=== PATIENT | male | born 1975 | race American Indian/Alaskan Native ===

== ENCOUNTER 2017-07-14 20:21 | Inpatient (IN) | payer MEDICARE ==
[2017-07-14 22:04] LABS: Basophils % (Auto) 0.2 % (0.0-1.8); Eosinophils % (Auto) 1.3 % (0.0-4.3); Hematocrit 44.1 % (35.5-45.6); Hemoglobin 14.3 gm/dl (11.8-15.2); Mean Corpuscular HGB Conc 33 % (32-34); Mean Corpuscular Hemoglobin 27 pg (28-32); Mean Corpuscular Volume 83 fl (84-94); Platelet Count 183 K/mm3 (140-440); Red Blood Count 5.35 M/mm3 (3.65-5.03); Red Cell Distribution Width 14.2 % (13.2-15.2); White Blood Count 9.2 K/mm3 (4.5-11.0)
[2017-07-14 22:19] LABS: Alanine Aminotransferase 13 units/L (7-56); Albumin 4.2 g/dL (3.9-5); Alkaline Phosphatase 127 units/L (35-129); Anion Gap 18 mmol/L; BUN/Creatinine Ratio 11.42; Blood Urea Nitrogen 16 mg/dL (9-20); Calcium 9.5 mg/dL (8.4-10.2); Carbon Dioxide 26 mmol/L (22-30); Chloride 91.1 mmol/L (98-107); Glucose 458 mg/dL (75-100); Lipase 256 units/L (13-60); Potassium 4.8 mmol/L (3.6-5.0); Sodium 130 mmol/L (137-145); Total Protein 8.5 g/dL (6.3-8.2)
[2017-07-15 03:52] LABS: Bacteria,Urine 1+ /HPF (Negative); Bilirubin,Urine NEG (Negative); Blood,Urine NEG (Negative); Ketones,Urine NEG (Negative); Leukocyte Esterase,Urine NEG (Negative); Mucus,Urine FEW /HPF; Nitrite,Urine NEG (Negative); RBC,Urine < 1.0 /HPF (0.0-6.0); Urobilinogen,Urine < 2.0 mg/dL (<2.0)
[2017-07-15] MEDS ORDERED: MORPHINE IV ONE (04:02)
[2017-07-15] MEDS ORDERED: TORADOL IV ONE (04:02)
[2017-07-15] MEDS ORDERED: NACL 0.9% 500 ML 500 ML IV ONE (04:04)
--- NOTE | 2017-07-15 04:10 | Emergency Department Report ---
ED Abdominal Pain HPI - General Chief Complaint: Abdominal Pain Stated Complaint: ABDOMINAL PAIN Time Seen by Provider: 07/15/17 03:36 Source: patient Mode of arrival: Ambulatory Limitations: No Limitations - History of Present Illness Initial Comments: A 41-year-old male with past medical history of diabetes, congestive heart failure, hypertension, acute and chronic renal insufficiency. Presents to ER with complaints of epigastric pain. Pain started about 3 days ago, it is progressively getting worse. Pain has a sharp burning character, pain radiates to his back. -: Gradual (for 3 days days, progressively getting worse) Location: epigastric Radiation: back Migration to: no migration Severity: moderate Severity scale (0 -10): 6 Quality: cramping, stabbing, aching, sharp, burning Consistency: intermittent Improves With: nothing Worsens With: nothing Associated Symptoms: nausea, vomiting, chills. denies: diarrhea, fever, constipation, dysuria, hematemesis, hematochezia, hematuria, anorexia, syncope, other - Related Data Home Medications Medication Instructions Recorded Confirmed Last Taken Furosemide [Lasix TAB] 40 mg PO BID 11/16/15 11/16/15 11/16/15 Losartan [Cozaar] 100 mg PO QDAY 11/16/15 11/16/15 11/16/15 Potassium Chloride [Klor-Con M10] 20 meq PO QDAY 11/16/15 11/16/15 11/16/15 Previous Rx's Medication Instructions Recorded Last Taken Type Aspirin [Aspirin BABY CHEW TAB] 81 mg PO QDAY #30 tab.chew 04/27/15 11/16/15 Rx Insulin NPH/Regular [NovoLIN 70/30] 25 unit SQ QAM #30 units 04/27/15 11/16/15 Rx Insulin NPH/Regular [NovoLIN 70/30] 30 units SQ HS #30 units 04/27/15 11/16/15 Rx Isosorb Dinit/Hydralazine HCl 1 each PO TID #60 tablet 04/27/15 11/16/15 Rx [Bidil Tablet] Carvedilol [Coreg] 12.5 mg PO BID #120 tablet 11/19/15 Unknown Rx Allergies Allergy/AdvReac Type Severity Reaction Status Date / Time No Known Allergies Allergy Verified 12/14/14 17:52 ED Review of Systems ROS: Stated complaint: ABDOMINAL PAIN Other details as noted in HPI Comment: All other systems reviewed and negative Constitutional: malaise, weakness. denies: chills, diaphoresis Eyes: denies: eye discharge, vision change ENT: denies: throat pain, dental pain, hearing loss Respiratory: denies: cough, shortness of breath, SOB with exertion Cardiovascular: denies: chest pain, palpitations, edema, syncope, paroxysmal nocturnal dyspnea Endocrine: no symptoms reported Gastrointestinal: abdominal pain (epigastric pain), nausea, vomiting, diarrhea. denies: constipation, hematemesis, melena Genitourinary: denies: dysuria, frequency, hematuria, discharge Musculoskeletal: denies: back pain, joint swelling, arthralgia Skin: denies: rash, lesions, change in color, change in hair/nails ED Past Medical Hx - Past Medical History Hx Hypertension: Yes Hx Heart Attack/AMI: No Hx Congestive Heart Failure: Yes Hx Diabetes: Yes (IDDM) Hx Asthma: No Hx COPD: No - Surgical History Hx Pacemaker: Yes Hx Internal Defibrillator: Yes Additional Surgical History: pacemaker / left leg - Social History Smoking Status: Current Some Day Smoker - Medications Home Medications: Home Medications Medication Instructions Recorded Confirmed Last Taken Type Aspirin [Aspirin BABY CHEW TAB] 81 mg PO QDAY #30 tab.chew 04/27/15 11/16/1511/30 Rx Insulin NPH/Regular [NovoLIN 70/30] 25 unit SQ QAM #30 units 04/27/15 11/16/15 11/16/15 Rx Insulin NPH/Regular [NovoLIN 70/30] 30 units SQ HS #30 units 04/27/15 11/16/15 11/16/15 Rx Isosorb Dinit/Hydralazine HCl 1 each PO TID #60 tablet 04/27/15 11/16/15 Rx [Bidil Tablet] Furosemide [Lasix TAB] 40 mg PO BID 11/16/15 11/16/15 11/16/15 History Losartan [Cozaar] 100 mg PO QDAY 11/16/15 11/16/15 11/16/15 History Potassium Chloride [Klor-Con M10] 20 meq PO QDAY 11/16/15 11/16/15 11/16/15 History Carvedilol [Coreg] 12.5 mg PO BID #120 tablet 11/19/15 Unknown Rx ED Physical Exam - General Limitations: No Limitations General appearance: in distress (moderate distress), obese - Head Head exam: Present: atraumatic, normocephalic, normal inspection - Eye Eye exam: Present: normal appearance, PERRL, EOMI. Absent: scleral icterus, conjunctival injection, nystagmus, periorbital swelling, periorbital tenderness Pupils: Present: normal accommodation - ENT ENT exam: Present: normal exam, normal orophraynx, mucous membranes moist - Neck Neck exam: Present: normal inspection, full ROM. Absent: tenderness, meningismus, lymphadenopathy, thyromegaly - Respiratory Respiratory exam: Present: normal lung sounds bilaterally, respiratory distress. Absent: rales, rhonchi, chest wall tenderness, accessory muscle use, decreased breath sounds - Cardiovascular Cardiovascular Exam: Present: regular rate, normal rhythm, normal heart sounds - GI/Abdominal GI/Abdominal exam: Present: soft, tenderness (epigastric region), guarding ( epigastric region), diminished bowel sounds - Rectal Rectal exam: Present: deferred - Extremities Exam Extremities exam: Present: normal inspection, full ROM, normal capillary refill , pedal edema - Back Exam Back exam: Present: normal inspection, full ROM. Absent: CVA tenderness (L), muscle spasm - Neurological Exam Neurological exam: Present: alert, oriented X3, CN II-XII intact ED Course Vital Signs 07/14/17 07/15/17 07/15/17 21:30 02:11 02:40 Temperature 99.0 F 98 F 98 F Pulse Rate 65 60 60 Respiratory 20 20 Rate Blood Pressure 237/122 Blood Pressure 189/104 169/92 [Left] O2 Sat by Pulse 99 97 97 Oximetry 07/15/17 05:23 Temperature Pulse Rate 60 Respiratory Rate Blood Pressure 162/90 Blood Pressure [Left] O2 Sat by Pulse Oximetry - Consultations Consultation #1: 07/15/17 06:29 Discussed with hospitalist service. Admission to [facility] ED Medical Decision Making - Lab Data Result diagrams: 07/14/17 21:41 07/14/17 21:41 - Radiology Data Radiology results: report reviewed Critical Care Time: No Critical care attestation.: If time is entered above; I have spent that time in minutes in the direct care of this critically ill patient, excluding procedure time. ED Disposition Clinical Impression: Acute pancreatitis, Uncontrolled hypertension Disposition: DC- OP ADMIT IP TO THIS HOSP Is pt being admited?: Yes Does the pt Need Aspirin: No Condition: Stable Instructions: Hypertension (ED) Referrals: LUKE HILL MD [Primary Care Provider] - 3-5 Days Time of Disposition: 06:31
[2017-07-15] MEDS ORDERED: NORMODYNE IV ONE (04:56)
[2017-07-15] MEDS ORDERED: NACL ONE (04:58)
[2017-07-15] MEDS ORDERED: ZOFRAN IV NR (05:00)
[2017-07-15 05:09] LABS: Creatine Kinase MB 1.9 ng/mL (0.0-4.0)
[2017-07-15 05:10] LABS: Creatine Kinase 100 units/L (55-170)
--- NOTE | 2017-07-15 05:50 | Cat Scan Report ---
FINAL REPORT EXAM: CT ABDOMEN PELVIS W CON HISTORY: Acute Pancreatitis TECHNIQUE: CT images are acquired through the Abdomen and Pelvis in arterial and delayed phases following intravenous administration of contrast. Transaxial, coronal and sagittal reformations are provided. PRIORS: Chest radiograph 11/16/2015, 11/04/2015 FINDINGS: Partially visualized intrathoracic contents are remarkable for cardiomegaly with possible pericardial effusion. Partially imaged pacemaker leads. There is peripancreatic edema involving the head and uncinate. No focal area of pancreatic parenchymal hypo enhancement or walled-off necrosis. No peripancreatic fluid or organizing collection. A few prominent peripancreatic lymph nodes are present. No pancreatic ductal dilatation. Splenic vasculature is normal in caliber and well opacified. The liver, gallbladder, spleen, and adrenal glands are unremarkable. Kidneys show no worrisome lesions, hydronephrosis, or calculi. A couple of right renal cysts measure 2.8 and 1.2 cm, respectively. Additional subcentimeter hypoenhancing cortical foci in the right kidney are too small to characterize but are also likely benign cysts. Urinary bladder is unremarkable. Small and large bowel are normal in caliber. Appendix is normal. No free air, free fluid, or lymphadenopathy identified. Aorta is normal in course and caliber. Superficial soft tissues are unremarkable. No acute or aggressive appearing skeletal findings. Right hip osteoarthrosis with subchondral cyst formation. Left femoral defect from prior intramedullary nail. IMPRESSION: Mild peripancreatic edema involving the head and uncinate process without any evident complication of acute pancreatitis. Cardiomegaly with possible pericardial effusion. Enlarged cardiac silhouette is demonstrated on prior chest radiographs.
--- NOTE | 2017-07-15 07:48 | History and Physical Report ---
History of Present Illness Date of examination: 07/15/17 Chief complaint: Abdominal pain with nausea and vomiting History of present illness: A very pleasant morbidly obese -[place] male patient with significant past medical history of diabetes mellitus congestive heart failure hypertension presented to the emergency room with abdominal pain and nausea and vomiting of 3 days' duration The patient denies any hematemesis or melena Denies chest pain or shortness of breath Denies headache or dizziness Initial evaluation was consistent with acute pancreatitis with elevated lipase, uncontrolled diabetes mellitus as well as malignant hypertension Past History Past Medical History: diabetes, heart failure, hypertension Past Surgical History: Other (ICD placement) Social history: lives with family, smoking (1 pack per day for many years), full code. denies: alcohol abuse, IV drug use Family history: hypertension Medications and Allergies Allergies Allergy/AdvReac Type Severity Reaction Status Date / Time No Known Allergies Allergy Verified 12/14/14 17:52 Home Medications Medication Instructions Recorded Confirmed Last Taken Type Aspirin [Aspirin BABY CHEW TAB] 81 mg PO QDAY #30 tab.chew 04/27/15 11/16/1511/30 Rx Insulin NPH/Regular [NovoLIN 70/30] 25 unit SQ QAM #30 units 04/27/15 11/16/15 11/16/15 Rx Insulin NPH/Regular [NovoLIN 70/30] 30 units SQ HS #30 units 04/27/15 11/16/15 11/16/15 Rx Isosorb Dinit/Hydralazine HCl 1 each PO TID #60 tablet 04/27/15 11/16/15 Rx [Bidil Tablet] Furosemide [Lasix TAB] 40 mg PO BID 11/16/15 11/16/15 11/16/15 History Losartan [Cozaar] 100 mg PO QDAY 11/16/15 11/16/15 11/16/15 History Potassium Chloride [Klor-Con M10] 20 meq PO QDAY 11/16/15 11/16/15 11/16/15 History Carvedilol [Coreg] 12.5 mg PO BID #120 tablet 11/19/15 Unknown Rx Review of Systems Constitutional: no weight loss, no weight gain Ears, nose, mouth and throat: no nasal congestion, no nasal discharge Cardiovascular: no chest pain, no orthopnea, no palpitations, no lightheadedness Respiratory: no cough with sputum, no shortness of breath Gastrointestinal: abdominal pain, nausea, vomiting, no diarrhea Genitourinary Male: no dysuria, no hematuria Musculoskeletal: no myalgias, no arthritis Integumentary: no rash, no lesions Neurological: no seizures, no syncope Psychiatric: no anxiety, no depression Endocrine: no cold intolerance, no heat intolerance Hematologic/Lymphatic: no easy bruising, no easy bleeding Allergic/Immunologic: no urticaria, no allergic rhinitis Exam - Constitutional Vitals: Temp Pulse Resp BP Pulse Ox 98 F 60 20 162/90 97 07/15/17 02:40 07/15/17 05:23 07/15/17 02:40 07/15/17 05:23 07/15/17 02:40 General appearance: Present: no acute distress, obese (morbidly obese) - EENT Eyes: Present: PERRL, EOM intact - Neck Neck: Present: supple, normal ROM - Respiratory Respiratory effort: normal Respiratory: bilateral: diminished, rales, negative: rhonchi, wheezing - Cardiovascular Rhythm: regular Heart Sounds: Present: S1 & S2 - Extremities Extremities: no ischemia Extremity abnormal: edema - Abdominal General gastrointestinal: Present: soft, non-tender, non-distended - Integumentary Integumentary: Present: clear, warm - Musculoskeletal Musculoskeletal: strength equal bilaterally - Psychiatric Psychiatric: appropriate mood/affect, cooperative - Neurologic Neurologic: CNII-XII intact, moves all extremities Results - Labs CBC & Chem 7: 07/14/17 21:41 07/14/17 21:41 Labs: Abnormal lab results 07/14/17 07/14/17 07/15/17 Range/Units 21:41 21:41 03:03 RBC 5.35 H (3.65-5.03) M/mm3 MCV 83 L (84-94) fl MCH 27 L (28-32) pg [place] % (Auto) 8.0 H (0.0-7.3) % Seg Neutrophils % 73.3 H (40.0-70.0) % Sodium 130 L (137-145) mmol/L Chloride 91.1 L (98-107) mmol/L Glucose 458 H (75-100) mg/dL Total Protein 8.5 H (6.3-8.2) g/dL Lipase 256 H (13-60) units/L Ur Specific [place] 1.037 H (1.003-1.030) Assessment and Plan --Acute Pancreatitis: Nothing by mouth status except for meds, IV fluids, IV antibiotics Levaquin Abdominal ultrasound to rule out cholelithiasis, consistent GI evaluation if needed --Possible peritonitis secondary to acute pancreatitis, continue supportive care --Type 2 diabetes mellitus; uncontrolled Accu-Chek sliding scale coverage and long-acting insulin as needed --Acute on Chronic systolic congestive heart failure Ejection fraction in 2014 10-15%, continue current anti-failure medications --Nonischemic cardiomyopathy; resume anti-failure medications --Hypertension; moderate control continue current home antihypertensives and when necessary medications --History of AICD in place; stable --Urinary tract infection on UA, patient is already on Levaquin, follow cultures --Morbid obesity with BMI of 46; patient advised diet modification and exercise as tolerated and weight reduction when medically stable Patient may benefit by outpatient bariatric surgical evaluation for weight reduction program when medically stable --Ongoing tobacco use; smoking cessation counseling done patient strongly advised to quit tobacco use --DVT prophylaxis with Lovenox --Full CODE STATUS Closely monitor the patient and adjust management as needed Plan of care discussed with the patient, his at the bedside and his nurse
[2017-07-15] MEDS ORDERED: MORPHINE IV PRN (08:01)
[2017-07-15] MEDS ORDERED: NOVOLOG SUB-Q ONE ×2 (08:35→09:26)
--- NOTE | 2017-07-15 09:23 | Ultrasound Report ---
ULTRASOUND ABDOMEN COMPLETE: Technique: Transabdominal ultrasound with color Doppler interrogation. History: abdominal pain, pancreatitis, evaluate for cholelithiasis. Findings: The liver is normal size, contour and echotexture. The gallbladder is normal size, contour and wall thickness. There appears to be minimal sludge within the gallbladder. No large shadowing gallstones or evidence for acute cholecystitis. The CBD measures 3.9 mm. The visualized portions of the pancreas including the head and proximal body are within normal limits. The kidneys demonstrate no hydronephrosis or mass. Few simple right renal cysts measuring up to 2.9 cm. Cortical thickness and echogenicity are within normal limits bilaterally. The spleen and aorta are within normal limits. No aneurysmal dilatation is noted. No ascites. IMPRESSION: Minimal sludge in the gallbladder. No large shadowing gallstones detected. Simple right renal cysts.
[2017-07-15] MEDS: NACL 0.9% 1000 ML 1,000 ML IV SCH ×2 (10:06→20:32)
--- NOTE | 2017-07-15 10:11 | XRay Report ---
AP CHEST: HISTORY: Pain, acute pancreatitis Mild cardiomegaly and single lead pacemaker device are unchanged since 11/16/15. Pulmonary vascularity is within normal limits. The lungs are clear. Normal bony structures. IMPRESSION: Mild cardiomegaly. Lungs clear.
[2017-07-15] MEDS: BIDIL 20/37.5MG PO SCH ×3 (12:12→20:39)
[2017-07-15] MEDS: COZAAR PO SCH (13:06)
[2017-07-15] MEDS: COREG PO SCH ×2 (13:06→21:32)
[2017-07-15] MEDS: LASIX PO SCH ×2 (13:07→21:31)
[2017-07-15] MEDS: K-DUR PO SCH (13:08)
[2017-07-15] MEDS: LEVAQUIN 750MG/150ML 750 MG/150 ML BAG IV SCH (13:08)
[2017-07-15] MEDS ORDERED: FLAGYL 500 MG/100 ML 500 MG/100 ML BAG IV SCH (14:00)
[2017-07-15] MEDS ORDERED: APRESOLINE IV PRN (15:14)
[2017-07-15] MEDS ORDERED: APRESOLINE PO SCH (16:00)
[2017-07-16 07:08] LABS: Basophils % (Auto) 0.4 % (0.0-1.8); Eosinophils % (Auto) 1.1 % (0.0-4.3); Hematocrit 38.3 % (35.5-45.6); Hemoglobin 12.8 gm/dl (11.8-15.2); Mean Corpuscular HGB Conc 34 % (32-34); Mean Corpuscular Hemoglobin 28 pg (28-32); Mean Corpuscular Volume 82 fl (84-94); Platelet Count 163 K/mm3 (140-440); Red Blood Count 4.66 M/mm3 (3.65-5.03); Red Cell Distribution Width 13.9 % (13.2-15.2); White Blood Count 7.9 K/mm3 (4.5-11.0)
[2017-07-16 07:28] LABS: Alanine Aminotransferase 9 units/L (7-56); Albumin 3.8 g/dL (3.9-5); Albumin/Globulin Ratio 1.1 %; Alkaline Phosphatase 110 units/L (35-129); Amylase 52 units/L (27-131); Anion Gap 17 mmol/L; BUN/Creatinine Ratio 10.83; Blood Urea Nitrogen 13 mg/dL (9-20); Carbon Dioxide 25 mmol/L (22-30); Chloride 101.4 mmol/L (98-107); Glucose 306 mg/dL (75-100); Lipase 65 units/L (13-60); Potassium 3.9 mmol/L (3.6-5.0); Sodium 139 mmol/L (137-145); Total Protein 7.2 g/dL (6.3-8.2)
[2017-07-16] MEDS: NACL 0.9% 1000 ML 1,000 ML IV SCH ×2 (07:45→18:20)
[2017-07-16] MEDS: BIDIL 20/37.5MG PO SCH ×3 (08:00→20:49)
[2017-07-16] MEDS ORDERED: NOVOLOG SUB-Q SCH (10:00)
[2017-07-16] MEDS: COREG PO SCH ×2 (10:00→22:19)
[2017-07-16] MEDS: COZAAR PO SCH (10:00)
[2017-07-16] MEDS: LEVAQUIN 750MG/150ML 750 MG/150 ML BAG IV SCH (10:48)
--- NOTE | 2017-07-16 11:17 | Consultation ---
History of Present Illness Consult date: 07/16/17 Reason for consult: other (pacreatitis) Requesting physician: STACI GROSS Chief complaint: abdominal pain - History of present illness History of present illness: 41 yo M with hx of obesity, CAD, DM, HTN presents to ER with 3 days of epigastric abdominal pain, n/v (nonbloody/nonbilious). He states this came on suddenly without a specific cause. Not related to food. Denies f/c, CP, SOB. His abdominal pain and nausea has resolved. He had one similar episode 2 years ago and was diagnosed with pancreatitis. He states he was recently started on a new medication by his PCP but does not recall the name. Past History Past Medical History: diabetes, heart failure, hypertension, other (obesity) Past Surgical History: Other (ICD placement) Social history: lives with family, smoking (1 pack per day for many years), full code. denies: alcohol abuse, IV drug use Family history: hypertension Medications and Allergies Allergies Allergy/AdvReac Type Severity Reaction Status Date / Time No Known Allergies Allergy Verified 12/14/14 17:52 Home Medications Medication Instructions Recorded Confirmed Last Taken Type Aspirin [Aspirin BABY CHEW TAB] 81 mg PO QDAY #30 tab.chew 04/27/15 11/16/1511/30 Rx Insulin NPH/Regular [NovoLIN 70/30] 25 unit SQ QAM #30 units 04/27/15 11/16/15 11/16/15 Rx Insulin NPH/Regular [NovoLIN 70/30] 30 units SQ HS #30 units 04/27/15 11/16/15 11/16/15 Rx Isosorb Dinit/Hydralazine HCl 1 each PO TID #60 tablet 04/27/15 11/16/15 Rx [Bidil Tablet] Furosemide [Lasix TAB] 40 mg PO BID 11/16/15 11/16/15 11/16/15 History Losartan [Cozaar] 100 mg PO QDAY 11/16/15 11/16/15 11/16/15 History Potassium Chloride [Klor-Con M10] 20 meq PO QDAY 11/16/15 11/16/15 11/16/15 History Carvedilol [Coreg] 12.5 mg PO BID #120 tablet 11/19/15 Unknown Rx Active Meds: Active Medications Carvedilol (Coreg) 12.5 mg PO BID [facility] Last Admin: 07/15/17 21:32 Dose: 12.5 mg Furosemide (Lasix) 40 mg PO BID [facility] Last Admin: 07/15/17 21:31 Dose: 40 mg Hydralazine HCl (Apresoline) 10 mg IV Q4H PRN PRN Reason: Hypertension Last Admin: 07/15/17 18:57 Dose: 10 mg Levofloxacin/Dextrose (Levaquin 750mg/150ml) 750 mg in 150 mls @ 100 mls/hr IV Q24HR SULEMA PRN Reason: Protocol Last Admin: 07/16/17 10:48 Dose: 100 mls/hr Sodium Chloride (Nacl 0.9% 1000 Ml) 1,000 mls @ 100 mls/hr IV DIRECT [facility] Last Admin: 07/16/17 07:45 Dose: 100 mls/hr Influenza Virus Vaccine Quadrival (Fluarix Quad [id number](36 Mos+)) 0.5 ml IM .ONCE ONE Stop: 07/16/17 13:52 Insulin Aspart (Novolog) 0 units SUB-Q ACHS [facility] PRN Reason: Protocol Insulin Human Isoph/Insulin Regular (Novolin 70/30) 10 unit SUB-Q BIDDIAB [facility] Isosorbide Dinitrate/Hydralazine (Bidil 20/37.5mg) 1 each PO TID [facility] Last Admin: 07/15/17 20:39 Dose: 1 each Losartan Potassium (Cozaar) 100 mg PO QDAY [facility] Last Admin: 07/15/17 13:06 Dose: Not Given Morphine Sulfate (Morphine) 2 mg IV Q4H PRN PRN Reason: Pain, Moderate (4-6) Pneumococcal Polyvalent Vaccine (Pneumovax 23) 0.5 ml IM .ONCE ONE Stop: 07/16/17 13:52 Potassium Chloride (K-Dur) 20 meq PO QDAY [facility] Last Admin: 07/15/17 13:08 Dose: 20 meq Review of Systems All systems: negative (see hpi) Exam Vital Signs Temp Pulse BP Pulse Ox 99.0 F 65 237/122 99 07/14/17 21:30 07/14/17 21:30 07/14/17 21:30 07/14/17 21:30 Narrative exam: Gen: AAOx3. NAD CV: S1, S2+ left upper chest wall scar Resp: No wheezes Abd: soft, obese, NT, ND Ext: No c/c/e Results - Labs 07/16/17 06:51 07/16/17 06:51 Abnormal lab results 07/15/17 07/15/17 07/15/17 Range/Units 12:32 17:45 21:45 MCV (84-94) fl [place] % (Auto) (0.0-7.3) % Glucose (75-100) mg/dL POC Glucose 311 H 296 H 328 H (70-105) Albumin (3.9-5) g/dL Lipase (13-60) units/L 07/16/17 07/16/17 07/16/17 Range/Units 05:45 06:51 06:51 MCV 82 L (84-94) fl [place] % (Auto) 8.5 H (0.0-7.3) % Glucose 306 H (75-100) mg/dL POC Glucose 334 H (70-105) Albumin 3.8 L (3.9-5) g/dL Lipase 65 H (13-60) units/L Diabetes panel 07/16/17 Range/Units 06:51 Sodium 139 D (137-145) mmol/L Potassium 3.9 (3.6-5.0) mmol/L Chloride 101.4 (98-107) mmol/L Carbon Dioxide 25 (22-30) mmol/L BUN 13 (9-20) mg/dL Creatinine 1.2 (0.8-1.5) mg/dL Glucose 306 H (75-100) mg/dL Calcium 9.0 (8.4-10.2) mg/dL AST 9 (5-40) units/L ALT 9 (7-56) units/L Alkaline Phosphatase 110 (35-129) units/L Total Protein 7.2 (6.3-8.2) g/dL Albumin 3.8 L (3.9-5) g/dL Calcium panel 07/16/17 Range/Units 06:51 Calcium 9.0 (8.4-10.2) mg/dL Albumin 3.8 L (3.9-5) g/dL Pituitary panel 07/16/17 Range/Units 06:51 Sodium 139 D (137-145) mmol/L Potassium 3.9 (3.6-5.0) mmol/L Chloride 101.4 (98-107) mmol/L Carbon Dioxide 25 (22-30) mmol/L BUN 13 (9-20) mg/dL Creatinine 1.2 (0.8-1.5) mg/dL Glucose 306 H (75-100) mg/dL Calcium 9.0 (8.4-10.2) mg/dL Adrenal panel 07/16/17 Range/Units 06:51 Sodium 139 D (137-145) mmol/L Potassium 3.9 (3.6-5.0) mmol/L Chloride 101.4 (98-107) mmol/L Carbon Dioxide 25 (22-30) mmol/L BUN 13 (9-20) mg/dL Creatinine 1.2 (0.8-1.5) mg/dL Glucose 306 H (75-100) mg/dL Calcium 9.0 (8.4-10.2) mg/dL Total Bilirubin 0.50 (0.1-1.2) mg/dL AST 9 (5-40) units/L ALT 9 (7-56) units/L Alkaline Phosphatase 110 (35-129) units/L Total Protein 7.2 (6.3-8.2) g/dL Albumin 3.8 L (3.9-5) g/dL - Imaging CT scan - abdomen: report reviewed, image reviewed (pancreatic head and uncinate process inflammation) US - abdomen: report reviewed, image reviewed (minimal gallbladder sludge) Assessment and Plan 41 yo M with acute pancreatitis, ?etiology 1. Abd us reviewed - ?sludge. no Stones. 2. lipase trending down, start clear liquids 3. adv diet as tolerated to low fat diet 4. recommend GI f/u as outpatient 5. unclear if etiology of pancreatitis is secondary to gallbladder on the basis of current imaging. Would recommend no surgical intervention at this time. 6. continue conservative management 7. d/w Dr. Gross
[2017-07-16] MEDS: NOVOLOG SUB-Q SCH ×3 (11:30→22:20)
[2017-07-16] MEDS ORDERED: Fluarix Quad 2017-2018(36 MOS+) IM ONE ×2 (13:51→21:00)
[2017-07-16] MEDS ORDERED: PNEUMOVAX 23 IM ONE ×3 (13:51→21:00)
[2017-07-16] MEDS: K-DUR PO SCH (14:04)
[2017-07-16] MEDS: LASIX PO SCH ×2 (14:05→22:19)
--- NOTE | 2017-07-16 14:28 | Consultation ---
History of Present Illness Consult date: 07/16/17 Consult reason: congestive heart failure History of present illness: Patient is a 41yr old male with a history of dilated non-ischemic cardiomyopathy and has an indwelling cardiac defibrillator. His most recent cardiac workup done 2 years ago. He had a stress thallium that reports no ischemia. Left ventricular ejection fraction 10-15% on echocardiogram. He presents to the ED with epigastric pain associated with nausea and vomiting now admitted with acute pancreatitis. A cardiac consultation is requested for CHF. Patient is resting in bed and appears comfortable. He denies shortness of breath. He denies ACID discharge. No evidence of CHF seen on chest x-ray. His ECG is a sinus rhythm with poor R wave progression. Past History Past Medical History: diabetes, heart failure, hypertension, other (obesity) Past Surgical History: Other (ICD placement) Social history: lives with family, smoking (1 pack per day for many years), full code. denies: alcohol abuse, IV drug use Family history: hypertension Medications and Allergies Allergies Allergy/AdvReac Type Severity Reaction Status Date / Time No Known Allergies Allergy Verified 12/14/14 17:52 Home Medications Medication Instructions Recorded Confirmed Last Taken Type Aspirin [Aspirin BABY CHEW TAB] 81 mg PO QDAY #30 tab.chew 04/27/15 11/16/1511/30 Rx Insulin NPH/Regular [NovoLIN 70/30] 25 unit SQ QAM #30 units 04/27/15 11/16/15 11/16/15 Rx Insulin NPH/Regular [NovoLIN 70/30] 30 units SQ HS #30 units 04/27/15 11/16/15 11/16/15 Rx Isosorb Dinit/Hydralazine HCl 1 each PO TID #60 tablet 04/27/15 11/16/15 Rx [Bidil Tablet] Furosemide [Lasix TAB] 40 mg PO BID 11/16/15 11/16/15 11/16/15 History Losartan [Cozaar] 100 mg PO QDAY 11/16/15 11/16/15 11/16/15 History Potassium Chloride [Klor-Con M10] 20 meq PO QDAY 11/16/15 11/16/15 11/16/15 History Carvedilol [Coreg] 12.5 mg PO BID #120 tablet 11/19/15 Unknown Rx Active Meds: Active Medications Carvedilol (Coreg) 12.5 mg PO BID [facility] Last Admin: 07/16/17 10:00 Dose: 12.5 mg Furosemide (Lasix) 40 mg PO BID [facility] Last Admin: 07/16/17 14:05 Dose: 40 mg Hydralazine HCl (Apresoline) 10 mg IV Q4H PRN PRN Reason: Hypertension Last Admin: 07/15/17 18:57 Dose: 10 mg Levofloxacin/Dextrose (Levaquin 750mg/150ml) 750 mg in 150 mls @ 100 mls/hr IV Q24HR SULEMA PRN Reason: Protocol Last Admin: 07/16/17 10:48 Dose: 100 mls/hr Sodium Chloride (Nacl 0.9% 1000 Ml) 1,000 mls @ 100 mls/hr IV DIRECT [facility] Last Admin: 07/16/17 07:45 Dose: 100 mls/hr Insulin Aspart (Novolog) 0 units SUB-Q ACHS [facility] PRN Reason: Protocol Last Admin: 07/16/17 11:30 Dose: Not Given Insulin Human Isoph/Insulin Regular (Novolin 70/30) 10 unit SUB-Q BIDDIAB [facility] Last Admin: 07/16/17 10:00 Dose: Not Given Isosorbide Dinitrate/Hydralazine (Bidil 20/37.5mg) 1 each PO TID [facility] Last Admin: 07/16/17 14:03 Dose: 1 each Losartan Potassium (Cozaar) 100 mg PO QDAY [facility] Last Admin: 07/16/17 10:00 Dose: Not Given Morphine Sulfate (Morphine) 2 mg IV Q4H PRN PRN Reason: Pain, Moderate (4-6) Potassium Chloride (K-Dur) 20 meq PO QDAY [facility] Last Admin: 07/16/17 14:04 Dose: 20 meq Physical Examination Vital Signs Temp Pulse BP Pulse Ox 99.0 F 65 237/122 99 07/14/17 21:30 07/14/17 21:30 07/14/17 21:30 07/14/17 21:30 General appearance: no acute distress Cardiac: Positive: Reg Rate and Rhythm Results 07/16/17 06:51 07/16/17 06:51 Cardiac Enzymes 07/16/17 Range/Units 06:51 AST 9 (5-40) units/L CBC 07/16/17 Range/Units 06:51 WBC 7.9 (4.5-11.0) K/mm3 RBC 4.66 (3.65-5.03) M/mm3 Hgb 12.8 (11.8-15.2) gm/dl Hct 38.3 (35.5-45.6) % Plt Count 163 (140-440) K/mm3 Lymph # 1.7 (1.2-5.4) K/mm3 [place] # 0.7 (0.0-0.8) K/mm3 Eos # 0.1 (0.0-0.4) K/mm3 Baso # 0.0 (0.0-0.1) K/mm3 Comprehensive Metabolic Panel 07/16/17 Range/Units 06:51 Sodium 139 D (137-145) mmol/L Potassium 3.9 (3.6-5.0) mmol/L Chloride 101.4 (98-107) mmol/L Carbon Dioxide 25 (22-30) mmol/L BUN 13 (9-20) mg/dL Creatinine 1.2 (0.8-1.5) mg/dL Glucose 306 H (75-100) mg/dL Calcium 9.0 (8.4-10.2) mg/dL AST 9 (5-40) units/L ALT 9 (7-56) units/L Alkaline Phosphatase 110 (35-129) units/L Total Protein 7.2 (6.3-8.2) g/dL Albumin 3.8 L (3.9-5) g/dL Assessment and Plan Acute pancreatitis Diabetes mellitus Hypertension Hx of NICMP, EF 10-15% Presence of AICD
--- NOTE | 2017-07-16 15:30 | Progress Note ---
Assessment and Plan Assessment and plan: --Acute Pancreatitis: Lipase is improving, start clear liquid diet advance as tolerated, IV fluids, pain medications, Abdominal ultrasound gallbladder sludge , no evidence of cholelithiasis , Surgical evaluation --Type 2 diabetes mellitus; uncontrolled Blood sugars in 300s ,Accu-Chek sliding scale coverage and long-acting insulin as needed HbA1c 11.8, counselling done patient advised to comply with medications and diet --Acute on Chronic systolic congestive heart failure Ejection fraction in 2014 10-15%, continue current anti-failure medications, cardiology following --Nonischemic cardiomyopathy; resume anti-failure medications --Hypertension; moderate control continue current antihypertensives and when necessary medications --History of AICD in place; stable --Sepsis secondary to Urinary tract infection , empiric antibiotics,follow cultures --Morbid obesity with BMI of 46; patient advised diet modification and exercise as tolerated and weight reduction when medically stable Patient may benefit by outpatient bariatric surgical evaluation for weight reduction program when medically stable --Ongoing tobacco use; smoking cessation counseling done patient strongly advised to quit tobacco use --DVT prophylaxis with Lovenox --Full CODE STATUS Closely monitor the patient and adjust management as needed Possible Discharge in 1-2 days if stable Plan of care discussed with the patient, his at the bedside and his nurse History Interval history: Patient seen and examined, medical records reviewed Patient feels slightly better, lipase trended down, abdominal pain and nausea significantly improved Alert awake oriented 3 acute distress Vital signs reviewed Hospitalist Physical - Constitutional Vitals: Temp Pulse Resp BP Pulse Ox 98.4 F 63 15 134/84 95 07/16/17 07:54 07/16/17 07:54 07/16/17 07:54 07/16/17 14:03 07/16/17 07:54 General appearance: Present: no acute distress, well-nourished, obese ( moderately obese) - EENT Eyes: Present: PERRL, EOM intact - Neck Neck: Present: supple, normal ROM - Respiratory Respiratory effort: normal Respiratory: bilateral: diminished, rales, negative: rhonchi, wheezing - Cardiovascular Rhythm: regular Heart Sounds: Present: S1 & S2 - Extremities Extremities: no ischemia, No edema Peripheral Pulses: within normal limits - Abdominal General gastrointestinal: soft, non-tender - Integumentary Integumentary: Present: clear, warm - Psychiatric Psychiatric: appropriate mood/affect, cooperative - Neurologic Neurologic: CNII-XII intact, moves all extremities Results - Labs CBC & Chem 7: 07/16/17 06:51 07/16/17 06:51 Labs: Laboratory Last Values WBC 7.9 K/mm3 (4.5-11.0) 07/16/17 06:51 RBC 4.66 M/mm3 (3.65-5.03) 07/16/17 06:51 Hgb 12.8 gm/dl (11.8-15.2) 07/16/17 06:51 Hct 38.3 % (35.5-45.6) 07/16/17 06:51 MCV 82 fl (84-94) L 07/16/17 06:51 MCH 28 pg (28-32) 07/16/17 06:51 MCHC 34 % (32-34) 07/16/17 06:51 RDW 13.9 % (13.2-15.2) 07/16/17 06:51 Plt Count 163 K/mm3 (140-440) 07/16/17 06:51 Lymph % (Auto) 21.1 % (13.4-35.0) 07/16/17 06:51 [place] % (Auto) 8.5 % (0.0-7.3) H 07/16/17 06:51 Eos % (Auto) 1.1 % (0.0-4.3) 07/16/17 06:51 Baso % (Auto) 0.4 % (0.0-1.8) 07/16/17 06:51 Lymph # 1.7 K/mm3 (1.2-5.4) 07/16/17 06:51 [place] # 0.7 K/mm3 (0.0-0.8) 07/16/17 06:51 Eos # 0.1 K/mm3 (0.0-0.4) 07/16/17 06:51 Baso # 0.0 K/mm3 (0.0-0.1) 07/16/17 06:51 Seg Neutrophils % 68.9 % (40.0-70.0) 07/16/17 06:51 Seg Neutrophils # 5.4 K/mm3 (1.8-7.7) 07/16/17 06:51 Sodium 139 mmol/L (137-145) D 07/16/17 06:51 Potassium 3.9 mmol/L (3.6-5.0) 07/16/17 06:51 Chloride 101.4 mmol/L (98-107) 07/16/17 06:51 Carbon Dioxide 25 mmol/L (22-30) 07/16/17 06:51 Anion Gap 17 mmol/L 07/16/17 06:51 BUN 13 mg/dL (9-20) 07/16/17 06:51 Creatinine 1.2 mg/dL (0.8-1.5) 07/16/17 06:51 Estimated GFR > 60 ml/min 07/16/17 06:51 BUN/Creatinine Ratio 10.83 % 07/16/17 06:51 Glucose 306 mg/dL (75-100) H 07/16/17 06:51 POC Glucose 286 (70-105) H 07/16/17 11:45 Hemoglobin A1c 11.8 % (4-6) H 07/15/17 08:33 Lactic Acid 1.50 mmol/L (0.7-2.0) 07/15/17 04:27 Calcium 9.0 mg/dL (8.4-10.2) 07/16/17 06:51 Magnesium 2.30 mg/dL (1.7-2.3) 07/15/17 04:27 Total Bilirubin 0.50 mg/dL (0.1-1.2) 07/16/17 06:51 AST 9 units/L (5-40) 07/16/17 06:51 ALT 9 units/L (7-56) 07/16/17 06:51 Alkaline Phosphatase 110 units/L (35-129) 07/16/17 06:51 Total Creatine Kinase 100 units/L (55-170) 07/15/17 04:27 CK-MB (CK-2) 1.9 ng/mL (0.0-4.0) 07/15/17 04:27 CK-MB (CK-2) Rel Index 1.9 (0-4) 07/15/17 04:27 Troponin T < 0.010 ng/mL (0.00-0.029) 07/15/17 04:27 NT-Pro-B Natriuret Pep 360.5 pg/mL (0-450) 07/15/17 04:27 Total Protein 7.2 g/dL (6.3-8.2) 07/16/17 06:51 Albumin 3.8 g/dL (3.9-5) L 07/16/17 06:51 Albumin/Globulin Ratio 1.1 % 07/16/17 06:51 Amylase 52 units/L (27-131) 07/16/17 06:51 Lipase 65 units/L (13-60) H 07/16/17 06:51 Urine Color Yellow (Yellow) 07/15/17 03:03 Urine Turbidity Clear (Clear) 07/15/17 03:03 Urine pH 5.0 (5.0-7.0) 07/15/17 03:03 Ur Specific [place] 1.037 (1.003-1.030) H 07/15/17 03:03 Urine Protein 30 mg/dl mg/dL (Negative) 07/15/17 03:03 Urine Glucose (UA) >=500 mg/dL (Negative) 07/15/17 03:03 Urine Ketones Neg mg/dL (Negative) 07/15/17 03:03 Urine Blood Neg (Negative) 07/15/17 03:03 Urine Nitrite Neg (Negative) 07/15/17 03:03 Urine Bilirubin Neg (Negative) 07/15/17 03:03 Urine Urobilinogen < 2.0 mg/dL (<2.0) 07/15/17 03:03 Ur Leukocyte Esterase Neg (Negative) 07/15/17 03:03 Urine WBC (Auto) 1.0 /HPF (0.0-6.0) 07/15/17 03:03 Urine RBC (Auto) < 1.0 /HPF (0.0-6.0) 07/15/17 03:03 Urine Bacteria (Auto) 1+ /HPF (Negative) 07/15/17 03:03 Urine Mucus Few /HPF 07/15/17 03:03
[2017-07-17] MEDS: NACL 0.9% 1000 ML 1,000 ML IV SCH (04:02)
[2017-07-17 05:37] LABS: Amylase 72 units/L (27-131); Anion Gap 16 mmol/L; BUN/Creatinine Ratio 9; Blood Urea Nitrogen 12 mg/dL (9-20); Calcium 8.7 mg/dL (8.4-10.2); Carbon Dioxide 25 mmol/L (22-30); Chloride 100.8 mmol/L (98-107); Glucose 163 mg/dL (75-100); Lipase 68 units/L (13-60); Potassium 3.6 mmol/L (3.6-5.0); Sodium 138 mmol/L (137-145)
[2017-07-17] MEDS: NOVOLOG SUB-Q SCH ×2 (08:37→12:37)
--- NOTE | 2017-07-17 09:26 | Progress Note ---
Assessment and Plan Acute pancreatitis Diabetes mellitus Hypertension Hx of NICMP, EF 10-15% Presence of AICD Continue medical therapy for dilated nonischemic cardiomyopathy. Subjective Date of service: 07/17/17 Interval history: Patient denies chest pain and shortness of breath. Objective Vital Signs Temp Pulse Resp BP Pulse Ox 07/17/17 07:14 98.8 F 56 L 16 159/71 95 07/16/17 22:19 83 126/62 07/16/17 22:01 98.4 F 18 126/62 07/16/17 20:49 62 160/82 07/16/17 15:53 98.4 F 58 L 16 123/59 93 07/16/17 14:03 134/84 - Physical Examination General: No Apparent Distress Cardiac: Positive: Reg Rate and Rhythm - Labs and Meds Comprehensive Metabolic Panel 07/17/17 Range/Units 04:15 Sodium 138 (137-145) mmol/L Potassium 3.6 (3.6-5.0) mmol/L Chloride 100.8 (98-107) mmol/L Carbon Dioxide 25 (22-30) mmol/L BUN 12 (9-20) mg/dL Creatinine 1.3 (0.8-1.5) mg/dL Glucose 163 H (75-100) mg/dL Calcium 8.7 (8.4-10.2) mg/dL
[2017-07-17] MEDS: LEVAQUIN 750MG/150ML 750 MG/150 ML BAG IV SCH (09:59)
[2017-07-17] MEDS: COZAAR PO SCH (09:59)
[2017-07-17] MEDS: BIDIL 20/37.5MG PO SCH (10:01)
[2017-07-17] MEDS: K-DUR PO SCH (10:03)
[2017-07-17] MEDS: LASIX PO SCH (10:03)
--- NOTE | 2017-07-17 10:40 | Discharge Summary ---
Providers - Providers Date of Admission: 07/15/17 07:49 Date of discharge: 07/17/17 Attending physician: LUIS EDUARDO SINGH MD 07/16/17 09:44 Consult to Physician [CONS] Routine Consulting Provider: ZAINAB HERNANDEZ Reason For Exam: possible biliary pancreatitis,GB sludge Place consult to:: DR. HERNANDEZ Notified:: DR. HERNANDEZ Phone number called:: INHOUSE Was contact made?: Yes If yes, spoke with:: DR. HERNANDEZ Time called:: 10:17 Comment:: DR. GROSS SPOKE WITH DR. HERNANDEZ 07/16/17 09:46 Consult to Physician [CONS] Routine Consulting Provider: LISA WOLFE Reason For Exam: acute on chr syst CHF Place consult to:: OCTAVIO BAER Notified:: OCTAVIO Phone number called:: IN HOUSE Was contact made?: Yes If yes, spoke with:: OCTAVIO Time called:: 10:36 Comment:: FABIANO ROSA Primary care physician: LUKE HILL Hospitalization Reason for admission: Acute pancreatitis Condition: Stable Pertinent studies: CT abdomen and pelvis significant for -Mild peripancreatic edema involving the head and uncinate process without any evident complication of acute pancreatitis. Hospital course: 41-year-old morbidly obese -[place] male patient with significant past medical history of diabetes mellitus congestive heart failure hypertension presented to the emergency room with abdominal pain and nausea and vomiting of 3 days' duration. Initial evaluation was consistent with acute pancreatitis with elevated lipase, uncontrolled diabetes mellitus as well as malignant hypertension. Patient was admitted and was treated for acute pancreatitis, with IV fluids, bowel rest, pain control. His diabetes and hypertension was treated accordingly. Patient's abdominal pain subsided and he tolerated his diet and discharged home. Patient was hemodynamically stable at the time of discharge. Patient said he has adequate refills of his medications and doesn't need a prescription. Patient was consulted about weight loss and smoking cessation. Disposition: - TO HOME OR SELFCARE Time spent for discharge: 31 minutes - Discharge Diagnoses (1) Acute pancreatitis Status: Acute Qualifiers: Pancreatitis type: P Acute pancreatitis complication: A (2) Uncontrolled hypertension Status: Acute (3) Acute on chronic systolic heart failure Status: Acute Core Measure Documentation - Palliative Care Palliative Care/ Comfort Measures: Not Applicable - Core Measures Any of the following diagnoses?: heart failure - Heart Failure Discharge Requirements CASSANDRA/ARB for LVSD if EF <40%: Yes Beta yumiko at discharge: Yes Exam - Physical Exam Narrative exam: Not in cardiopulmonary distress. The patient appeared well nourished and normally developed. Vital signs as documented. Head exam is unremarkable. No scleral icterus . Neck is without jugular venous distension, thyromegaly, or carotid bruits. Lungs are clear to auscultation. Cardiac exam reveals regular rate and Rhythm. First and second heart sounds normal. No murmurs, rubs or gallops. Abdominal exam reveals non tender, soft abdomen. Extremities are nonedematous and both femoral and pedal pulses are normal. BLADE ALIGNER: Alert and oriented 3. No focal weakness. - Constitutional Vitals: Temp Pulse Resp BP Pulse Ox 98.8 F 60 16 157/71 95 07/17/17 07:14 07/17/17 10:01 07/17/17 07:14 07/17/17 10:01 07/17/17 07:14 Plan Activity: no restrictions Weight Bearing Status: Full Weight Bearing Diet: low cholesterol, low salt, diabetic Follow up with: LUKE HILL MD [Primary Care Provider] - 7 Days
[2017-07-17] MEDS ORDERED: Fluarix Quad 2017-2018(36 MOS+) IM ONE (12:00)
[2017-07-17] MEDS ORDERED: PNEUMOVAX 23 IM ONE (12:00)
[2017-07-17 13:12] VITALS: BP 117/49
[2017-07-17] MEDS: COREG PO SCH (13:12)
[2017-07-18] MEDS ORDERED: LEVAQUIN PO SCH (10:00)
== END 2017-07-17 14:00 | disposition home or self-care (01) | DRG 871 ==
LOC: ED 20:21 → 3A 07-15 07:49
PROVIDERS: ADMIT Internal Medicine; ATTEND Internal Medicine
PROC: 3E0234Z Introduction of Serum, Toxoid and Vaccine into Muscle, Percutaneous Approach (ICD-10-PCS; principal; 2017-07-15)
DX: A41.9 Sepsis, unspecified organism (principal); K85.90 Acute pancreatitis without necrosis or infection, unspecified; K65.9 Peritonitis, unspecified; I50.23 Acute on chronic systolic (congestive) heart failure; I42.8 Other cardiomyopathies; N39.0 Urinary tract infection, site not specified; Z68.42 Body mass index [BMI] 45.0-49.9, adult; I13.0 Hypertensive heart and chronic kidney disease with heart failure and stage 1 through stage 4 chronic kidney disease, or unspecified chronic kidney disease; E11.22 Type 2 diabetes mellitus with diabetic chronic kidney disease; F17.200 Nicotine dependence, unspecified, uncomplicated; N18.9 Chronic kidney disease, unspecified; E66.01 Morbid (severe) obesity due to excess calories; Z71.3 Dietary counseling and surveillance; Z23 Encounter for immunization; Z79.82 Long term (current) use of aspirin; Z79.4 Long term (current) use of insulin; Z95.810 Presence of automatic (implantable) cardiac defibrillator; Z82.49 Family history of ischemic heart disease and other diseases of the circulatory system; Z71.6 Tobacco abuse counseling
CPT/HCPCS: 36415; 71010; 74177; 76700; 80048; 80053; 81001; 82140; 82150; 82550; 82553; 82962; 83036; 83690; 83735; 83880; 84484; 85025; 87086; 90686; 90732; 93005; 93010; 96372; 96374; 96375; J0360; J1815; J1885; J1956; J2270; J2405; J7030; J7040; Q9967

== ENCOUNTER 2017-09-06 12:41 | Emergency (ER) | payer MEDICARE ==
--- NOTE | 2017-09-06 13:35 | Emergency Department Report ---
ED ENT HPI - General Chief complaint: Dental/Oral Stated complaint: TOOTH ABCESS Time Seen by Provider: 09/06/17 13:19 Source: patient Mode of arrival: Ambulatory Limitations: No Limitations - History of Present Illness Initial comments: 41 yo morbidly obese pt with right lower jaw dental pain. Pt took motrin at home but is still in pain. He is here for pain medication and antibiotics. he has had tooth abscess since Nov 2016. He denies fever ,chills or nausea. He reports increased pain for two days and poor oral intake because pain is 6/10. He took 200mg of tylenol and had no relief. He did not take his blood pressure medication today - Related Data Home Medications Medication Instructions Recorded Confirmed Last Taken Furosemide [Lasix TAB] 40 mg PO BID 11/16/15 11/16/15 11/16/15 Losartan [Cozaar] 100 mg PO QDAY 11/16/15 11/16/15 11/16/15 Potassium Chloride [Klor-Con M10] 20 meq PO QDAY 11/16/15 11/16/15 11/16/15 Previous Rx's Medication Instructions Recorded Last Taken Type Aspirin [Aspirin BABY CHEW TAB] 81 mg PO QDAY #30 tab.chew 04/27/15 11/16/15 Rx Insulin NPH/Regular [NovoLIN 70/30] 25 unit SQ QAM #30 units 04/27/15 11/16/15 Rx Insulin NPH/Regular [NovoLIN 70/30] 30 units SQ HS #30 units 04/27/15 11/16/15 Rx Isosorbibe Dinit/Hydralazine 1 each PO TID #60 tablet 04/27/15 11/16/15 Rx [Bidil Tablet] Carvedilol [Coreg] 12.5 mg PO BID #120 tablet 11/19/15 Unknown Rx Penicillin V Potassium 500 mg PO QID #28 tablet 09/06/17 Unknown Rx oxyCODONE /ACETAMINOPHEN [Percocet 2 tab PO Q6HR PRN #20 tablet 09/06/17 Unknown Rx 5/325] Allergies Allergy/AdvReac Type Severity Reaction Status Date / Time No Known Allergies Allergy Verified 12/14/14 17:52 ED Dental HPI - General Chief complaint: Dental/Oral Stated complaint: TOOTH ABCESS Time Seen by Provider: 09/06/17 13:19 Source: patient Mode of arrival: Ambulatory Limitations: No Limitations - History of Present Illness MD complaint: tooth pain -: Gradual Severity: severe Quality: aching, other (throbbing) Improves with: none Worsens with: chewing, movement, hot/cold liquids Context- Dental: history of dental caries, poor dental care Dental Associated Symptons: Yes: Gum Swelling. No: Headache, Earache, Sore Throat, Fever - Related Data Home Medications Medication Instructions Recorded Confirmed Last Taken Furosemide [Lasix TAB] 40 mg PO BID 11/16/15 11/16/15 11/16/15 Losartan [Cozaar] 100 mg PO QDAY 11/16/15 11/16/15 11/16/15 Potassium Chloride [Klor-Con M10] 20 meq PO QDAY 11/16/15 11/16/15 11/16/15 Previous Rx's Medication Instructions Recorded Last Taken Type Aspirin [Aspirin BABY CHEW TAB] 81 mg PO QDAY #30 tab.chew 04/27/15 11/16/15 Rx Insulin NPH/Regular [NovoLIN 70/30] 25 unit SQ QAM #30 units 04/27/15 11/16/15 Rx Insulin NPH/Regular [NovoLIN 70/30] 30 units SQ HS #30 units 04/27/15 11/16/15 Rx Isosorbibe Dinit/Hydralazine 1 each PO TID #60 tablet 04/27/15 11/16/15 Rx [Bidil Tablet] Carvedilol [Coreg] 12.5 mg PO BID #120 tablet 11/19/15 Unknown Rx Penicillin V Potassium 500 mg PO QID #28 tablet 09/06/17 Unknown Rx oxyCODONE /ACETAMINOPHEN [Percocet 2 tab PO Q6HR PRN #20 tablet 09/06/17 Unknown Rx 5/325] Allergies Allergy/AdvReac Type Severity Reaction Status Date / Time No Known Allergies Allergy Verified 12/14/14 17:52 ED Review of Systems ROS: Stated complaint: TOOTH ABCESS Other details as noted in HPI Constitutional: denies: chills, fever Eyes: denies: eye pain, eye discharge, vision change ENT: dental pain. denies: ear pain, throat pain Respiratory: denies: cough, shortness of breath, wheezing Cardiovascular: other (elevated blood pressure). denies: chest pain, palpitations Endocrine: no symptoms reported Gastrointestinal: denies: abdominal pain, nausea, diarrhea Genitourinary: denies: urgency, dysuria Musculoskeletal: denies: back pain, joint swelling, arthralgia Skin: denies: rash, lesions Neurological: denies: headache, weakness, paresthesias Psychiatric: denies: anxiety, depression Hematological/Lymphatic: denies: easy bleeding, easy bruising ED Past Medical Hx - Past Medical History Hx Hypertension: Yes Hx Heart Attack/AMI: No Hx Congestive Heart Failure: Yes Hx Diabetes: Yes Hx Asthma: No Hx COPD: No - Surgical History Hx Pacemaker: Yes Hx Internal Defibrillator: Yes Additional Surgical History: pacemaker / left leg - Social History Smoking Status: Never Smoker Substance Use Type: None - Medications Home Medications: Home Medications Medication Instructions Recorded Confirmed Last Taken Type Aspirin [Aspirin BABY CHEW TAB] 81 mg PO QDAY #30 tab.chew 04/27/15 11/16/1511/30 Rx Insulin NPH/Regular [NovoLIN 70/30] 25 unit SQ QAM #30 units 04/27/15 11/16/15 11/16/15 Rx Insulin NPH/Regular [NovoLIN 70/30] 30 units SQ HS #30 units 04/27/15 11/16/15 11/16/15 Rx Isosorbibe Dinit/Hydralazine 1 each PO TID #60 tablet 04/27/15 11/16/15 Rx [Bidil Tablet] Furosemide [Lasix TAB] 40 mg PO BID 11/16/15 11/16/15 11/16/15 History Losartan [Cozaar] 100 mg PO QDAY 11/16/15 11/16/15 11/16/15 History Potassium Chloride [Klor-Con M10] 20 meq PO QDAY 11/16/15 11/16/15 11/16/15 History Carvedilol [Coreg] 12.5 mg PO BID #120 tablet 11/19/15 Unknown Rx Penicillin V Potassium 500 mg PO QID #28 tablet 09/06/17 Unknown Rx oxyCODONE /ACETAMINOPHEN [Percocet 2 tab PO Q6HR PRN #20 tablet 09/06/17 Unknown Rx 5/325] ED Physical Exam - General Limitations: No Limitations General appearance: alert, in no apparent distress - Head Head exam: Present: atraumatic, normocephalic - Eye Eye exam: Present: normal appearance - ENT ENT exam: Present: mucous membranes moist, other (multiple missing teeth, poor dentition, multiple caries) - Expanded ENT Exam Expanded Teeth exam: Present: dental caries, dental tenderness # (30), gingival enlargement (30) - Neck Neck exam: Present: normal inspection - Respiratory Respiratory exam: Present: normal lung sounds bilaterally. Absent: respiratory distress - Cardiovascular Cardiovascular Exam: Present: regular rate, normal rhythm. Absent: systolic murmur, diastolic murmur, rubs, gallop - GI/Abdominal GI/Abdominal exam: Present: soft, normal bowel sounds - Rectal Rectal exam: Present: deferred - Extremities Exam Extremities exam: Present: normal inspection - Back Exam Back exam: Present: normal inspection - Neurological Exam Neurological exam: Present: alert, oriented X3 - Psychiatric Psychiatric exam: Present: normal affect, normal mood - Skin Skin exam: Present: warm, dry, intact, normal color. Absent: rash ED Course Vital Signs 09/06/17 09/06/17 09/06/17 12:54 13:21 15:39 Temperature 98.7 F Pulse Rate 89 74 57 L Respiratory 20 16 16 Rate Blood Pressure 205/122 Blood Pressure 224/120 167/94 [Left] O2 Sat by Pulse 100 97 94 Oximetry - Reevaluation(s) Reevaluation #1: 09/06/17 16:09 PTS MED REC FORM HAS WRONG BP MEDICATIONS, NOT CURRENT. PT HAS COME DOWN SO WILL D/CHIME HOME - Nerve Block Consent Obtained: verbal consent Time Out Performed: Yes Local Anesthetic Used: Lidocaine 2% (bupivacaine .5%) Side: right Nerve Blocks: other (dental block) Procedure Successful: Yes Complications: none Patient Tolerated Procedure: well (mandibular nerve V3 sensory) Critical care attestation.: If time is entered above; I have spent that time in minutes in the direct care of this critically ill patient, excluding procedure time. ED Disposition Clinical Impression: Abscess, dental, Tooth caries, Toothache, Morbid obesity due to excess calories Hypertension Qualifiers: Hypertension type: unspecified Qualified Code(s): I10 - Essential (primary) hypertension Disposition: TO HOME OR SELFCARE Is pt being admited?: No Does the pt Need Aspirin: No Condition: Stable Instructions: Dental Abscess (ED), Dental Caries (ED), Hypertension (ED), Toothache (ED) Prescriptions: oxyCODONE /ACETAMINOPHEN [Percocet 5/325] 2 tab PO Q6HR PRN #20 tablet PRN Reason: Pain Penicillin V Potassium 500 mg PO QID #28 tablet Referrals: PRIMARY CARE, [Primary Care Provider] - 3-5 Days
[2017-09-06] MEDS ORDERED: PERCOCET 5/325 PO ONE (14:15)
[2017-09-06] MEDS ORDERED: TORADOL IM ONE (14:15)
[2017-09-06] MEDS ORDERED: XYLOCAINE 2% INFILTRATI ONE (14:16)
[2017-09-06] MEDS ORDERED: MARCAINE 0.5% INFILTRATI ONE (14:16)
[2017-09-06 15:40] VITALS: BP 167/94
[2017-09-06] MEDS ORDERED: COREG PO ONE (15:42)
[2017-09-06] MEDS ORDERED: COZAAR PO ONE (15:42)
[2017-09-06] MEDS ORDERED: LASIX PO ONE (15:42)
[2017-09-06] MEDS ORDERED: BIDIL 20/37.5MG PO ONE (15:44)
== END 2017-09-06 16:50 | disposition home or self-care (01) ==
LOC: ED 12:41
DX: K04.7 Periapical abscess without sinus (principal); K02.9 Dental caries, unspecified; E66.01 Morbid (severe) obesity due to excess calories; I10 Essential (primary) hypertension; E11.9 Type 2 diabetes mellitus without complications
CPT/HCPCS: 64400; 96372; 99282; J1885

== ENCOUNTER 2018-01-12 14:21 | Emergency (ER) | payer OTHER, MEDICARE ==
[2018-01-12 15:43] LABS: Basophils % (Auto) 0.5 % (0.0-1.8); Eosinophils # (Auto) 0.2 K/mm3 (0.0-0.4); Eosinophils % (Auto) 2.1 % (0.0-4.3); Hematocrit 41.7 % (35.5-45.6); Hemoglobin 13.9 gm/dl (11.8-15.2); Lymphocytes # (Auto) 1.8 K/mm3 (1.2-5.4); Lymphocytes % (Auto) 24.3 % (13.4-35.0); Mean Corpuscular HGB Conc 33 % (32-34); Mean Corpuscular Hemoglobin 27 pg (28-32); Mean Corpuscular Volume 83 fl (84-94); Monocytes # (Auto) 0.6 K/mm3 (0.0-0.8); Monocytes % (Auto) 7.9 % (0.0-7.3); Platelet Count 187 K/mm3 (140-440); Red Blood Count 5.05 M/mm3 (3.65-5.03); Red Cell Distribution Width 14.5 % (13.2-15.2)
[2018-01-12 15:45] LABS: Bilirubin,Urine NEG (Negative); Blood,Urine NEG (Negative); Color,Urine Yellow (Yellow); Hyaline Casts,Urine 1 /LPF; Mucus,Urine FEW /HPF; Protein,Urine <15 mg/dL mg/dL (Negative); RBC,Urine < 1.0 /HPF (0.0-6.0); Urobilinogen,Urine < 2.0 mg/dL (<2.0)
[2018-01-12 15:56] LABS: BUN/Creatinine Ratio 13; Blood Urea Nitrogen 17 mg/dL (9-20); Calcium 8.6 mg/dL (8.4-10.2); Hemolysis Index 9
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
[2018-01-12] MEDS ORDERED: APRESOLINE IV ONE (17:02)
[2018-01-12] MEDS ORDERED: LASIX IV ONE (17:10)
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
[2018-01-12 19:25] VITALS: BP 153/90
== END 2018-01-12 19:28 | disposition home or self-care (01) ==
LOC: ED 14:21
DX: M54.5 Low back pain (principal); I11.0 Hypertensive heart disease with heart failure; I50.9 Heart failure, unspecified; E11.9 Type 2 diabetes mellitus without complications; Z95.1 Presence of aortocoronary bypass graft; Z79.82 Long term (current) use of aspirin; Z79.4 Long term (current) use of insulin
CPT/HCPCS: 36415; 71046; 72100; 80048; 81001; 83880; 85025; 93005; 93010; 96374; 96375; 99284; J0360; J1940

== ENCOUNTER 2018-12-22 15:30 | Emergency (ER) | payer MEDICARE, MEDICAID ==
[2018-12-22 15:35] VITALS: BP 169/90
--- NOTE | 2018-12-22 15:40 | Emergency Department Report ---
Blank Doc - Documentation Documentation: This is a 42-year-old male that presents with URI symptoms x2 weeks. This initial assessment/diagnostic orders/clinical plan/treatment(s) is/are subject to change based on patient's health status, clinical progression and re- assessment by fellow clinical providers in the ED. Further treatment and workup at subsequent clinical providers discretion. Patient/guardians urged not to elope from the ED as their condition may be serious if not clinically assessed and managed. Initial orders include: 1- Patient sent to [facility] for further evaluation and treatment 2- cxr
--- NOTE | 2018-12-22 16:30 | XRay Report ---
PROCEDURE: XR CHEST ROUTINE 2V TECHNIQUE: Frontal and lateral chest radiographs. HISTORY: cough COMPARISONS: None FINDINGS: A left chest pacemaker is present. Cardiomegaly is noted. No pulmonary edema. No consolidation. No pleural effusion. No pneumothorax. No acute osseous abnormality. IMPRESSION: No acute process in the chest. Cardiomegaly. This document is electronically signed by Vilma Dickerson., December 22 2018 04:28:11 PM ET
--- NOTE | 2018-12-22 17:08 | Emergency Department Report ---
- General Chief Complaint: Upper Respiratory Infection Stated Complaint: CONSTANT COUGHING Time Seen by Provider: 12/22/18 15:40 Source: patient Mode of arrival: Ambulatory Limitations: No Limitations - History of Present Illness Initial Comments: Pt is a 42 yo male who presents to the ED with c/o a cough for a week. He states he has clear/yellow sputum production. He denies any fever, congestion, rhinorrhea, ear ache, sore throat, night sweats, CP, SOB, or any other symptoms. He states he was placed on antibiotics on 12/20/18 for a tooth extraction. He states he believes it is amoxicillin. Advised pt to keep taking medication as prescribed. The patient states he has taken OTC cough medication without relief. The patient has a hx of a defibrillator for an EF of 15%. Pt denies any issues with his defibrillator or any recent shocks. Pt denies any increased LE edema or abdominal distention. - Related Data Home Medications Medication Instructions Recorded Confirmed Last Taken Ibuprofen 800 mg PO Q6H 12/22/18 12/22/18 Unknown NIFEdipine [Nifedipine ER] 60 mg PO DAILY 12/22/18 12/22/18 Unknown Sacubitril/Valsartan [Entresto 49 mg PO BID 12/22/18 12/22/18 Unknown 49-51 mg] Torsemide [Demadex] 20 mg PO DAILY 12/22/18 12/22/18 Unknown Previous Rx's Medication Instructions Recorded Last Taken Type Aspirin [Aspirin BABY CHEW TAB] 81 mg PO QDAY #30 tab.chew 04/27/15 11/16/15 Rx Penicillin V Potassium 500 mg PO QID #28 tablet 09/06/17 Unknown Rx Brompheniramine/Pseudoephed/Dm 10 ml PO Q6HR PRN #1 bottle 12/22/18 Unknown Rx [Bromfed Dm Cough Syrup] Cetirizine HCl [Zyrtec] 10 mg PO DAILY #30 tablet 12/22/18 Unknown Rx methylPREDNISolone [Medrol Dose 10 mg PO DAILY 5 Days #15 pack 12/22/18 Unknown Rx Mauro] Allergies Allergy/AdvReac Type Severity Reaction Status Date / Time No Known Allergies Allergy Verified 12/22/18 15:31 ED Review of Systems ROS: Stated complaint: CONSTANT COUGHING Other details as noted in HPI Comment: All other systems reviewed and negative ED Past Medical Hx - Past Medical History Hx Hypertension: Yes Hx Heart Attack/AMI: No Hx Congestive Heart Failure: Yes Hx Diabetes: Yes Hx Asthma: No Hx COPD: No - Surgical History Hx Pacemaker: Yes Hx Internal Defibrillator: Yes Additional Surgical History: pacemaker / left leg - Social History Smoking Status: Never Smoker Substance Use Type: None - Medications Home Medications: Home Medications Medication Instructions Recorded Confirmed Last Taken Type Aspirin [Aspirin BABY CHEW TAB] 81 mg PO QDAY #30 tab.chew 04/27/15 12/22/18 11/16/15 Rx Penicillin V Potassium 500 mg PO QID #28 tablet 09/06/17 12/22/18 Unknown Rx Brompheniramine/Pseudoephed/Dm 10 ml PO Q6HR PRN #1 bottle 12/22/18 Unknown Rx [Bromfed Dm Cough Syrup] Cetirizine HCl [Zyrtec] 10 mg PO DAILY #30 tablet 12/22/18 Unknown Rx Ibuprofen 800 mg PO Q6H 12/22/18 12/22/18 Unknown History NIFEdipine [Nifedipine ER] 60 mg PO DAILY 12/22/18 12/22/18 Unknown History Sacubitril/Valsartan [Entresto 49 mg PO BID 12/22/18 12/22/18 Unknown History 49-51 mg] Torsemide [Demadex] 20 mg PO DAILY 12/22/18 12/22/18 Unknown History methylPREDNISolone [Medrol Dose 10 mg PO DAILY 5 Days #15 pack 12/22/18 Unknown Rx Mauro] ED Physical Exam - General Limitations: No Limitations General appearance: alert, in no apparent distress - Head Head exam: Present: atraumatic, normocephalic - Eye Eye exam: Present: normal appearance - ENT ENT exam: Present: normal orophraynx, mucous membranes moist - Neck Neck exam: Present: normal inspection. Absent: meningismus - Respiratory Respiratory exam: Present: normal lung sounds bilaterally. Absent: respiratory distress, wheezes, rales, rhonchi, stridor, chest wall tenderness, accessory muscle use, decreased breath sounds, prolonged expiratory - Cardiovascular Cardiovascular Exam: Present: regular rate, normal rhythm, normal heart sounds. Absent: systolic murmur, rubs, gallop - Neurological Exam Neurological exam: Present: alert, oriented X3 - Psychiatric Psychiatric exam: Present: normal affect, normal mood - Skin Skin exam: Present: warm, dry, intact ED Course Vital Signs 12/22/18 12/22/18 15:32 15:34 Temperature 98.6 F Pulse Rate 72 Respiratory 20 Rate Blood Pressure 169/90 [Right] O2 Sat by Pulse 95 Oximetry ED Medical Decision Making - Radiology Data Radiology results: report reviewed, image reviewed Ordering Physician: DEEP RADFORD NP Date of Service: 12/22/18 Procedure(s): XR chest routine 2V Accession Number(s): [id number] cc: DEEP RADFORD NP Fluoro Time In Minutes: PROCEDURE: XR CHEST ROUTINE 2V TECHNIQUE: Frontal and lateral chest radiographs. HISTORY: cough COMPARISONS: None FINDINGS: A left chest pacemaker is present. Cardiomegaly is noted. No pulmonary edema. No consolidation. No pleural effusion. No pneumothorax. No acute osseous abnormality. IMPRESSION: No acute process in the chest. Cardiomegaly. This document is electronically signed by Vilma Dickerson., December 22 2018 04:28:11 PM ET - Medical Decision Making Pt is a 42 yo male who presents with a cough with clear/yellow sputum production x1 week. CXR with no acute process. No fever, CP, SOB or any other symptoms. Will tx symptomatically for a URI. Will have pt follow up with his primary care doctor, Dr. Hill in 2-3 days. Critical care attestation.: If time is entered above; I have spent that time in minutes in the direct care of this critically ill patient, excluding procedure time. ED Disposition Clinical Impression: URI (upper respiratory infection) Qualifiers: URI type: unspecified URI Qualified Code(s): J06.9 - Acute upper respiratory infection, unspecified Disposition: - TO HOME OR SELFCARE Is pt being admited?: No Does the pt Need Aspirin: No Condition: Stable Instructions: Upper Respiratory Infection (ED) Additional Instructions: Follow up with your primary care doctor, Dr. Hill in the next 2-3 days. Contin ue taking your antibiotics that you were prescribed by your dentist. Return to the emergency room if new or worsening symptoms. Prescriptions: Brompheniramine/Pseudoephed/Dm [Bromfed Dm Cough Syrup] 10 ml PO Q6HR PRN #1 bottle PRN Reason: Cough methylPREDNISolone [Medrol Dose Mauro] 10 mg PO DAILY 5 Days #15 pack Cetirizine HCl [Zyrtec] 10 mg PO DAILY #30 tablet Referrals: LUKE HILL MD [Primary Care Provider] - 3-5 Days Time of Disposition: 17:20 Print Language: FRISIAN
== END 2018-12-22 17:40 | disposition home or self-care (01) ==
LOC: ED 15:30
DX: J06.9 Acute upper respiratory infection, unspecified (principal); I10 Essential (primary) hypertension; I11.0 Hypertensive heart disease with heart failure; I50.9 Heart failure, unspecified; E11.9 Type 2 diabetes mellitus without complications; Z95.818 Presence of other cardiac implants and grafts; Z79.899 Other long term (current) drug therapy
CPT/HCPCS: 71046; 99283

== ENCOUNTER 2019-04-03 22:17 | Emergency (ER) | payer MEDICARE ==
[2019-04-03 22:21] VITALS: BP 165/96
--- NOTE | 2019-04-03 22:24 | Emergency Department Report ---
Blank Doc - Documentation Documentation: This is a 43-year-old male that presents with sore throat. This initial assessment/diagnostic orders/clinical plan/treatment(s) is/are subject to change based on patient's health status, clinical progression and re- assessment by fellow clinical providers in the ED. Further treatment and workup at subsequent clinical providers discretion. Patient/guardians urged not to elope from the ED as their condition may be serious if not clinically assessed and managed. Initial orders include: 1- Patient sent to [facility] for further evaluation and treatment 2- strep swabs
[2019-04-03] MEDS ORDERED: IBUPROFEN PO ONE (23:44)
--- NOTE | 2019-04-03 23:48 | Emergency Department Report ---
ED ENT HPI - General Chief complaint: Sore Throat Stated complaint: THROAT PAIN Time Seen by Provider: 04/03/19 22:23 Source: patient Mode of arrival: Ambulatory Limitations: No Limitations - History of Present Illness Initial comments: 43-year-old -Tongan male with a past medical history diabetes and hypertension pacemaker and CHF comes in for sore throat 2 days. Patient reports that the pain is worse with swallowing eating and drinking. Denies any fever or chills never had this episode before. Patient's been taken [id number] ibuprofen 600 mg once a day. MD complaint: sore throat Onset/Timin -: days(s) Location: throat Severity: moderate Severity scale (0 -10): 8 Quality: sharp Consistency: intermittent Improves with: none Worsens with: swallowing Associated Symptoms: pain with swallowing, sore throat - Related Data Home Medications Medication Instructions Recorded Confirmed Last Taken Ibuprofen 800 mg PO Q6H 12/22/18 12/22/18 Unknown NIFEdipine [Nifedipine ER] 60 mg PO DAILY 12/22/18 12/22/18 Unknown Sacubitril/Valsartan [Entresto 49 mg PO BID 12/22/18 12/22/18 Unknown 49-51 mg] Torsemide [Demadex] 20 mg PO DAILY 12/22/18 12/22/18 Unknown Previous Rx's Medication Instructions Recorded Last Taken Type Aspirin [Aspirin BABY CHEW TAB] 81 mg PO QDAY #30 tab.chew 04/27/15 11/16/15 Rx Penicillin V Potassium 500 mg PO QID #28 tablet 09/06/17 Unknown Rx Brompheniramine/Pseudoephed/Dm 10 ml PO Q6HR PRN #1 bottle 12/22/18 Unknown Rx [Bromfed Dm Cough Syrup] methylPREDNISolone [Medrol Dose 10 mg PO DAILY 5 Days #15 pack 12/22/18 Unknown Rx Mauro] Cetirizine HCl [Zyrtec 10mg tab] 10 mg PO DAILY #30 tablet 04/03/19 Unknown Rx Ibuprofen [Motrin 800 MG tab] 800 mg PO Q8HR PRN #15 tablet 04/03/19 Unknown Rx Allergies Allergy/AdvReac Type Severity Reaction Status Date / Time No Known Allergies Allergy Verified 12/22/18 15:31 ED Dental HPI - General Chief complaint: Sore Throat Stated complaint: THROAT PAIN Time Seen by Provider: 04/03/19 22:23 Source: patient Mode of arrival: Ambulatory Limitations: No Limitations - Related Data Home Medications Medication Instructions Recorded Confirmed Last Taken Ibuprofen 800 mg PO Q6H 12/22/18 12/22/18 Unknown NIFEdipine [Nifedipine ER] 60 mg PO DAILY 12/22/18 12/22/18 Unknown Sacubitril/Valsartan [Entresto 49 mg PO BID 12/22/18 12/22/18 Unknown 49-51 mg] Torsemide [Demadex] 20 mg PO DAILY 12/22/18 12/22/18 Unknown Previous Rx's Medication Instructions Recorded Last Taken Type Aspirin [Aspirin BABY CHEW TAB] 81 mg PO QDAY #30 tab.chew 04/27/15 11/16/15 Rx Penicillin V Potassium 500 mg PO QID #28 tablet 09/06/17 Unknown Rx Brompheniramine/Pseudoephed/Dm 10 ml PO Q6HR PRN #1 bottle 12/22/18 Unknown Rx [Bromfed Dm Cough Syrup] methylPREDNISolone [Medrol Dose 10 mg PO DAILY 5 Days #15 pack 12/22/18 Unknown Rx Mauro] Cetirizine HCl [Zyrtec 10mg tab] 10 mg PO DAILY #30 tablet 04/03/19 Unknown Rx Ibuprofen [Motrin 800 MG tab] 800 mg PO Q8HR PRN #15 tablet 04/03/19 Unknown Rx Allergies Allergy/AdvReac Type Severity Reaction Status Date / Time No Known Allergies Allergy Verified 12/22/18 15:31 ED Review of Systems ROS: Stated complaint: THROAT PAIN Other details as noted in HPI Comment: All other systems reviewed and negative Constitutional: denies: chills, fever ENT: throat pain ED Past Medical Hx - Past Medical History Previous Medical History?: Yes Hx Hypertension: Yes Hx Heart Attack/AMI: No Hx Congestive Heart Failure: Yes Hx Diabetes: Yes Hx Asthma: No Hx COPD: No - Surgical History Past Surgical History?: Yes Hx Pacemaker: Yes Hx Internal Defibrillator: Yes Additional Surgical History: pacemaker / left leg - Social History Smoking Status: Never Smoker Substance Use Type: None - Medications Home Medications: Home Medications Medication Instructions Recorded Confirmed Last Taken Type Aspirin [Aspirin BABY CHEW TAB] 81 mg PO QDAY #30 tab.chew 04/27/15 12/22/18 11/16/15 Rx Penicillin V Potassium 500 mg PO QID #28 tablet 09/06/17 12/22/18 Unknown Rx Brompheniramine/Pseudoephed/Dm 10 ml PO Q6HR PRN #1 bottle 12/22/18 Unknown Rx [Bromfed Dm Cough Syrup] Ibuprofen 800 mg PO Q6H 12/22/18 12/22/18 Unknown History NIFEdipine [Nifedipine ER] 60 mg PO DAILY 12/22/18 12/22/18 Unknown History Sacubitril/Valsartan [Entresto 49 mg PO BID 12/22/18 12/22/18 Unknown History 49-51 mg] Torsemide [Demadex] 20 mg PO DAILY 12/22/18 12/22/18 Unknown History methylPREDNISolone [Medrol Dose 10 mg PO DAILY 5 Days #15 pack 12/22/18 Unknown Rx Mauro] Cetirizine HCl [Zyrtec 10mg tab] 10 mg PO DAILY #30 tablet 04/03/19 Unknown Rx Ibuprofen [Motrin 800 MG tab] 800 mg PO Q8HR PRN #15 tablet 04/03/19 Unknown Rx ED Physical Exam - General Limitations: No Limitations General appearance: alert, in no apparent distress - Head Head exam: Present: atraumatic, normocephalic - Eye Eye exam: Present: normal appearance - ENT ENT exam: Present: mucous membranes moist - Expanded ENT Exam Expanded Throat exam: Negative: tonsillar erythema, tonsillomegaly, tonsillar exudate - Neurological Exam Neurological exam: Present: alert, oriented X3, normal gait - Psychiatric Psychiatric exam: Present: normal affect, normal mood - Skin Skin exam: Present: warm, dry, intact, normal color. Absent: rash ED Course Vital Signs 04/03/19 22:20 Temperature 98.5 F Pulse Rate 61 Respiratory 21 Rate Blood Pressure 165/96 O2 Sat by Pulse 97 Oximetry ED Medical Decision Making - Medical Decision Making 43 year old -[place]ong[place] male comes to emergency room for 3 day history of throat pain worse with swallowing. Strep test is negative. Patient was given ibuprofen 800 mg now. Discussed the patient is most likely from a virus. Patient is to take ibuprofen every 6-8 hours as needed for pain. Follow up with his primary care provider if his symptoms persist or gets worse. Critical care attestation.: If time is entered above; I have spent that time in minutes in the direct care of this critically ill patient, excluding procedure time. ED Disposition Clinical Impression: Acute tonsillitis Disposition: DC- TO HOME OR SELFCARE Is pt being admited?: No Does the pt Need Aspirin: No Condition: Stable Instructions: Tonsillitis (ED) Additional Instructions: Please take pain medication as prescribed. Take an antihistamine as prescribed. Follow up with your primary care provider if his symptoms persist or gets worse. Prescriptions: Ibuprofen [Motrin 800 MG tab] 800 mg PO Q8HR PRN #15 tablet PRN Reason: Pain , Severe (7-10) Cetirizine HCl [Zyrtec 10mg tab] 10 mg PO DAILY #30 tablet Referrals: LUKE HILL MD [Primary Care Provider] - 3-5 Days
== END 2019-04-03 23:59 | disposition home or self-care (01) ==
LOC: ED 22:17
DX: J03.90 Acute tonsillitis, unspecified (principal); I11.0 Hypertensive heart disease with heart failure; I50.9 Heart failure, unspecified; E11.9 Type 2 diabetes mellitus without complications; Z79.1 Long term (current) use of non-steroidal anti-inflammatories (NSAID); Z79.82 Long term (current) use of aspirin; Z79.899 Other long term (current) drug therapy; Z95.0 Presence of cardiac pacemaker
CPT/HCPCS: 87116; 87430; 99283

== ENCOUNTER 2019-04-18 19:26 | Emergency (ER) | payer MEDICARE ==
[2019-04-18] MEDS ORDERED: CATAPRES PO ONE (22:47)
[2019-04-19 00:28] VITALS: BP 197/111
[2019-04-19] MEDS ORDERED: DECADRON IM ONE (00:34)
--- NOTE | 2019-04-19 00:39 | Emergency Department Report ---
ED ENT HPI - General Chief complaint: Sore Throat Stated complaint: SORE THROAT Time Seen by Provider: 04/19/19 00:33 Source: patient Mode of arrival: Ambulatory Limitations: No Limitations - History of Present Illness Initial comments: Patient is a 43-year-old male who presents to emergency room with complaints of a sore throat that began 2 weeks ago. He states it hurts swallow. He denies any fever, difficulty tolerating secretions, difficulty tolerating by mouth intake. Was evaluated in the ED on 04/03 and had a negative rapid strep at that time and was put on ibuprofen and Zyrtec. He states his symptoms are not resolving. He states he has also been using an [id number] throat spray. Past medical history diabetes, HTN, CHF with a defibrillator. He states he did not take his blood pressure medication. His primary care doctor is Dr. Hill. - Related Data Home Medications Medication Instructions Recorded Confirmed Last Taken Ibuprofen 800 mg PO Q6H 12/22/18 12/22/18 Unknown NIFEdipine [Nifedipine ER] 60 mg PO DAILY 12/22/18 12/22/18 Unknown Sacubitril/Valsartan [Entresto 49 mg PO BID 12/22/18 12/22/18 Unknown 49-51 mg] Torsemide [Demadex] 20 mg PO DAILY 12/22/18 12/22/18 Unknown Previous Rx's Medication Instructions Recorded Last Taken Type Aspirin [Aspirin BABY CHEW TAB] 81 mg PO QDAY #30 tab.chew 04/27/15 11/16/15 Rx Penicillin V Potassium 500 mg PO QID #28 tablet 09/06/17 Unknown Rx Brompheniramine/Pseudoephed/Dm 10 ml PO Q6HR PRN #1 bottle 12/22/18 Unknown Rx [Bromfed Dm Cough Syrup] methylPREDNISolone [Medrol Dose 10 mg PO DAILY 5 Days #15 pack 12/22/18 Unknown Rx Mauro] Cetirizine HCl [Zyrtec 10mg tab] 10 mg PO DAILY #30 tablet 04/03/19 Unknown Rx Ibuprofen [Motrin 800 MG tab] 800 mg PO Q8HR PRN #15 tablet 04/03/19 Unknown Rx Nystas/Diphen/Xyl Visc/Mylanta 10 ml MM BID #100 ml 04/19/19 Unknown Rx [Magic Mouthwash] Allergies Allergy/AdvReac Type Severity Reaction Status Date / Time No Known Allergies Allergy Verified 12/22/18 15:31 ED Dental HPI - General Chief complaint: Sore Throat Stated complaint: SORE THROAT Time Seen by Provider: 04/19/19 00:33 Source: patient Mode of arrival: Ambulatory Limitations: No Limitations - Related Data Home Medications Medication Instructions Recorded Confirmed Last Taken Ibuprofen 800 mg PO Q6H 12/22/18 12/22/18 Unknown NIFEdipine [Nifedipine ER] 60 mg PO DAILY 12/22/18 12/22/18 Unknown Sacubitril/Valsartan [Entresto 49 mg PO BID 12/22/18 12/22/18 Unknown 49-51 mg] Torsemide [Demadex] 20 mg PO DAILY 12/22/18 12/22/18 Unknown Previous Rx's Medication Instructions Recorded Last Taken Type Aspirin [Aspirin BABY CHEW TAB] 81 mg PO QDAY #30 tab.chew 04/27/15 11/16/15 Rx Penicillin V Potassium 500 mg PO QID #28 tablet 09/06/17 Unknown Rx Brompheniramine/Pseudoephed/Dm 10 ml PO Q6HR PRN #1 bottle 12/22/18 Unknown Rx [Bromfed Dm Cough Syrup] methylPREDNISolone [Medrol Dose 10 mg PO DAILY 5 Days #15 pack 12/22/18 Unknown Rx Mauro] Cetirizine HCl [Zyrtec 10mg tab] 10 mg PO DAILY #30 tablet 04/03/19 Unknown Rx Ibuprofen [Motrin 800 MG tab] 800 mg PO Q8HR PRN #15 tablet 04/03/19 Unknown Rx Nystas/Diphen/Xyl Visc/Mylanta 10 ml MM BID #100 ml 04/19/19 Unknown Rx [Magic Mouthwash] Allergies Allergy/AdvReac Type Severity Reaction Status Date / Time No Known Allergies Allergy Verified 12/22/18 15:31 ED Review of Systems ROS: Stated complaint: SORE THROAT Other details as noted in HPI Comment: All other systems reviewed and negative ED Past Medical Hx - Past Medical History Hx Hypertension: Yes Hx Heart Attack/AMI: No Hx Congestive Heart Failure: Yes Hx Diabetes: Yes Hx Asthma: No Hx COPD: No - Surgical History Hx Pacemaker: Yes Hx Internal Defibrillator: Yes Additional Surgical History: pacemaker / left leg - Social History Smoking Status: Never Smoker Substance Use Type: None - Medications Home Medications: Home Medications Medication Instructions Recorded Confirmed Last Taken Type Aspirin [Aspirin BABY CHEW TAB] 81 mg PO QDAY #30 tab.chew 04/27/15 12/22/18 11/16/15 Rx Penicillin V Potassium 500 mg PO QID #28 tablet 09/06/17 12/22/18 Unknown Rx Brompheniramine/Pseudoephed/Dm 10 ml PO Q6HR PRN #1 bottle 12/22/18 Unknown Rx [Bromfed Dm Cough Syrup] Ibuprofen 800 mg PO Q6H 12/22/18 12/22/18 Unknown History NIFEdipine [Nifedipine ER] 60 mg PO DAILY 12/22/18 12/22/18 Unknown History Sacubitril/Valsartan [Entresto 49 mg PO BID 12/22/18 12/22/18 Unknown History 49-51 mg] Torsemide [Demadex] 20 mg PO DAILY 12/22/18 12/22/18 Unknown History methylPREDNISolone [Medrol Dose 10 mg PO DAILY 5 Days #15 pack 12/22/18 Unknown Rx Mauro] Cetirizine HCl [Zyrtec 10mg tab] 10 mg PO DAILY #30 tablet 04/03/19 Unknown Rx Ibuprofen [Motrin 800 MG tab] 800 mg PO Q8HR PRN #15 tablet 04/03/19 Unknown Rx Nystas/Diphen/Xyl Visc/Mylanta 10 ml MM BID #100 ml 04/19/19 Unknown Rx [Magic Mouthwash] ED Physical Exam - General Limitations: No Limitations General appearance: alert, in no apparent distress - Head Head exam: Present: atraumatic, normocephalic - Eye Eye exam: Present: normal appearance, PERRL - ENT ENT exam: Present: normal orophraynx, mucous membranes moist, other (no tonsillar exudates, no tonsillar hypertrophy, no oropharynx erythema) - Neurological Exam Neurological exam: Present: alert, oriented X3 - Psychiatric Psychiatric exam: Present: normal affect, normal mood - Skin Skin exam: Present: warm, dry, intact ED Course Vital Signs 04/18/19 04/19/19 04/19/19 22:40 00:25 00:26 Temperature 98.7 F Pulse Rate 60 57 L Respiratory 20 Rate Blood Pressure 197/111 197/111 Blood Pressure 169/82 [Left] O2 Sat by Pulse 100 Oximetry ED Medical Decision Making - Lab Data Lab Results 04/18/19 Range/Units 22:44 Group A Strep Rapid Negative (Negative) Vital Signs 04/18/19 04/19/19 04/19/19 22:40 00:25 00:26 Temperature 98.7 F Pulse Rate 60 57 L Respiratory 20 Rate Blood Pressure 197/111 197/111 Blood Pressure 169/82 [Left] O2 Sat by Pulse 100 Oximetry - Medical Decision Making Patient is a 43-year-old male who presents to emergency room with complaints of a sore throat that began 2 weeks ago. He states it hurts swallow. He denies any fever, difficulty tolerating secretions, difficulty tolerating by mouth intake. Was evaluated in the ED on 04/03 and had a negative rapid strep at that time and was put on ibuprofen and Zyrtec. He states his symptoms are not resolving. He states he has also been using an [id number]-ivulrzc throat spray. Past medical history diabetes, HTN, CHF with a defibrillator. He states he did not take his blood pressure medication. His primary care doctor is Dr. Hill. vitals with elevated blood pressure secondary to pt not taking his medication. pt given 8 mg of decadron for his throat discomfort while in the ED. rapid strep is again negative. oropharynx exam appears normal. pt given magic mouthwash. advised to use as prescribed. discussed with pt that he needs to see his PCP for further evaluation and management. discussed to continue to use throat spray and warm saltwater gargles. Follow up with Dr. Hill your primary care doctor in the next 2-3 days. please discuss with Dr. Hill about your elevated blood pressure reading during todays visit and please take your blood pressure med ication as it is prescribed. Return to the emergency room for any new or worsening symptoms. Critical care attestation.: If time is entered above; I have spent that time in minutes in the direct care of this critically ill patient, excluding procedure time. ED Disposition Clinical Impression: Pain in throat, Elevated blood pressure reading Disposition: -01 TO HOME OR SELFCARE Is pt being admited?: No Does the pt Need Aspirin: No Condition: Stable Instructions: Pharyngitis (ED) Additional Instructions: Please use medication as prescribed. Continue to use throat spray and warm saltwater gargles. Follow up with Dr. Hill your primary care doctor in the next 2-3 days. please discuss with Dr. Hill about your elevated blood pressure reading during todays visit and please take your blood pressure medication as it is prescribed. Return to the emergency room for any new or worsening symptoms. Prescriptions: Nystas/Diphen/Xyl Visc/Mylanta [Magic Mouthwash] 10 ml MM BID #100 ml Referrals: LUKE HILL MD [Primary Care Provider] - 2-3 Days Time of Disposition: 00:38 Print Language: ARABIC
== END 2019-04-19 01:04 | disposition home or self-care (01) ==
LOC: ED 19:26
DX: J02.9 Acute pharyngitis, unspecified (principal); I11.0 Hypertensive heart disease with heart failure; I50.9 Heart failure, unspecified; E11.9 Type 2 diabetes mellitus without complications; Z95.810 Presence of automatic (implantable) cardiac defibrillator; Z79.899 Other long term (current) drug therapy; Z79.82 Long term (current) use of aspirin
CPT/HCPCS: 87116; 87430; 96372; 99283; J1100

== ENCOUNTER 2021-01-07 22:28 | Emergency (ER) | payer MEDICARE ==
--- NOTE | 2021-01-08 01:01 | Emergency Department Report ---
ED General Adult HPI - General Chief complaint: Headache Stated complaint: BOILS;HEADACHE Source: patient Mode of arrival: Ambulatory Limitations: No Limitations - History of Present Illness Initial comments: Patient is a 45-year-old -[place] male with a history of morbid obesity, hypertension, CHF and drm-jlfyyah-dluomwzqi diabetes who presents to the ED with complaint of acute onset persistent headache and painful swollen posterior scalp rashes for the last 3 days. Patient states that the headache and the painful swollen rashes of worsened in the last 24 hours despite taking ntir-zge-[id number] medications for pain. Patient denies dizziness, syncope, chest pain, shortness of breath, fever, chills, cough, traumatic injury, fall, nausea and vomiting or neck pain. MD Complaint: Painful boils on the occipital scalp; headache -: Sudden, days(s) (3) Location: head (Posterior) Radiation: non-radiation Severity scale (0 -10): 8 Quality: aching, sharp Consistency: constant Improves with: none Worsens with: none Associated Symptoms: denies other symptoms, headaches, rash (Swollen, painful nonfluctuant rash on posterior scalp). denies: confusion, chest pain, cough, diaphoresis, fever/chills, loss of appetite, malaise, nausea/vomiting, shortness of breath, syncope, weakness Treatments Prior to Arrival: none - Related Data Home Medications Medication Instructions Recorded Confirmed Last Taken NIFEdipine [Nifedipine ER] 60 mg PO DAILY 12/22/18 12/22/18 Unknown Sacubitril/Valsartan [Entresto 49 mg PO BID 12/22/18 12/22/18 Unknown 49-51 mg] Previous Rx's Medication Instructions Recorded Last Taken Type Aspirin [Aspirin BABY CHEW TAB] 81 mg PO QDAY #30 tab.chew 04/27/15 11/16/15 Rx Brompheniramine/Pseudoephed/Dm 10 ml PO Q6HR PRN #1 bottle 12/22/18 Unknown Rx [Bromfed Dm 2-30-10 mg/5 ml Syr] Cetirizine HCl [Zyrtec 10mg tab] 10 mg PO DAILY #30 tablet 04/03/19 Unknown Rx Acetaminophen [Acetaminophen TAB] 650 mg PO Q4H PRN tablet 08/19/20 Unknown Rx Insulin NPH/Regular [NovoLIN 70/30] 15 unit SUB-Q BIDDIAB #1 vial 08/19/20 Unknown Rx Spironolactone [Aldactone] 25 mg PO QDAY #30 tablet 08/19/20 Unknown Rx Torsemide [Demadex] 20 mg PO DAILY #30 tab 08/19/20 Unknown Rx Valsartan [Diovan] 80 mg PO QDAY #30 tablet 08/19/20 Unknown Rx carvediloL [Coreg] 6.25 mg PO BID #60 tablet 08/19/20 Unknown Rx levoFLOXacin [Levaquin] 750 mg PO QDAY #7 tablet 08/19/20 Unknown Rx Ibuprofen [Motrin] 800 mg PO Q8HR PRN #30 tablet 01/08/21 Unknown Rx cephALEXin [Keflex] 500 mg PO Q6HR #40 capsule 01/08/21 Unknown Rx Allergies Allergy/AdvReac Type Severity Reaction Status Date / Time No Known Allergies Allergy Verified 01/07/21 22:56 ED Review of Systems ROS: Stated complaint: BOILS;HEADACHE Other details as noted in HPI Constitutional: denies: chills, fever Eyes: denies: eye pain, eye discharge, vision change ENT: denies: ear pain, throat pain Respiratory: denies: cough, shortness of breath, wheezing Cardiovascular: denies: chest pain, palpitations Endocrine: no symptoms reported Gastrointestinal: denies: abdominal pain, nausea, diarrhea Genitourinary: denies: urgency, dysuria Musculoskeletal: denies: back pain, joint swelling, arthralgia Skin: rash (Swollen, painful rashes on posterior scalp). denies: lesions Neurological: denies: headache, weakness, paresthesias Psychiatric: denies: anxiety, depression Hematological/Lymphatic: denies: easy bleeding, easy bruising ED Past Medical Hx - Past Medical History Hx Hypertension: Yes Hx Heart Attack/AMI: No Hx Congestive Heart Failure: Yes Hx Diabetes: Yes Hx Asthma: No Hx COPD: No - Surgical History Hx Pacemaker: Yes Hx Internal Defibrillator: Yes Additional Surgical History: pacemaker / left leg - Social History Smoking Status: Never Smoker Substance Use Type: None - Medications Home Medications: Home Medications Medication Instructions Recorded Confirmed Last Taken Type Aspirin [Aspirin BABY CHEW TAB] 81 mg PO QDAY #30 tab.chew 04/27/15 12/22/18 11/16/15 Rx Brompheniramine/Pseudoephed/Dm 10 ml PO Q6HR PRN #1 bottle 12/22/18 Unknown Rx [Bromfed Dm 2-30-10 mg/5 ml Syr] NIFEdipine [Nifedipine ER] 60 mg PO DAILY 12/22/18 12/22/18 Unknown History Sacubitril/Valsartan [Entresto 49 mg PO BID 12/22/18 12/22/18 Unknown History 49-51 mg] Cetirizine HCl [Zyrtec 10mg tab] 10 mg PO DAILY #30 tablet 04/03/19 Unknown Rx Acetaminophen [Acetaminophen TAB] 650 mg PO Q4H PRN tablet 08/19/20 Unknown Rx Insulin NPH/Regular [NovoLIN 70/30] 15 unit SUB-Q BIDDIAB #1 vial 08/19/20 Unknown Rx Spironolactone [Aldactone] 25 mg PO QDAY #30 tablet 08/19/20 Unknown Rx Torsemide [Demadex] 20 mg PO DAILY #30 tab 08/19/20 12/22/18 Unknown Rx Valsartan [Diovan] 80 mg PO QDAY #30 tablet 08/19/20 Unknown Rx carvediloL [Coreg] 6.25 mg PO BID #60 tablet 08/19/20 Unknown Rx levoFLOXacin [Levaquin] 750 mg PO QDAY #7 tablet 08/19/20 Unknown Rx Ibuprofen [Motrin] 800 mg PO Q8HR PRN #30 tablet 01/08/21 Unknown Rx cephALEXin [Keflex] 500 mg PO Q6HR #40 capsule 01/08/21 Unknown Rx ED Physical Exam - General Limitations: No Limitations General appearance: alert, in no apparent distress - Head Head exam: Present: other (Palpable severely tender swollen maculopapular nonfluctuant rashes on occipital scalp) - Eye Eye exam: Present: normal appearance, PERRL, EOMI Pupils: Present: normal accommodation - ENT ENT exam: Present: normal exam, normal orophraynx, mucous membranes moist, TM's normal bilaterally, normal external ear exam - Neck Neck exam: Present: normal inspection, full ROM - Respiratory Respiratory exam: Present: normal lung sounds bilaterally. Absent: respiratory distress, wheezes, rales, rhonchi, stridor, chest wall tenderness, accessory muscle use, prolonged expiratory - Cardiovascular Cardiovascular Exam: Present: regular rate, normal rhythm, normal heart sounds. Absent: systolic murmur, diastolic murmur, rubs, gallop - GI/Abdominal GI/Abdominal exam: Present: soft, normal bowel sounds. Absent: tenderness, guarding, rebound, hyperactive bowel sounds, hypoactive bowel sounds, organomegaly - Extremities Exam Extremities exam: Present: normal inspection, full ROM, normal capillary refill - Back Exam Back exam: Present: normal inspection, full ROM. Absent: tenderness, CVA tenderness (R), muscle spasm, paraspinal tenderness, vertebral tenderness - Neurological Exam Neurological exam: Present: alert, oriented X3, CN II-XII intact, normal gait, reflexes normal - Psychiatric Psychiatric exam: Present: normal affect, normal mood - Skin Skin exam: Present: warm, dry, intact, normal color, rash (Swollen, tender maculopapular nonfluctuant rashes on occipital scalp) ED Course Vital Signs 01/07/21 23:04 Temperature 98.5 F Pulse Rate 71 Respiratory 18 Rate Blood Pressure 182/106 O2 Sat by Pulse 99 Oximetry ED Medical Decision Making - Medical Decision Making This is a 45-year-old -[place]ish male with a history of morbid obesity, hypertension, CHF and euu-eyssqyn-fwoagvmgs diabetes who presents to the ED with complaint of acute onset persistent headache and painful swollen posterior scalp rashes for the last 3 days. Patient states that the headache and the painful swollen rashes of worsened in the last 24 hours despite taking zarx-jjh-zyzyjct medications for pain. In the ED, patient is alert and oriented x3 and is not in any distress. Patient was treated for pain in the ED and also given initial oral antibiotics in the ED. Patient was therefore discharged home on pain medications and oral antibiotics for suspected acute folliculitis of his scalp. Patient was advised to follow-up with his primary care physician in 7 to 10 days for reevaluation or return to the ED immediately if symptoms get worse. - Differential Diagnosis Cellulitis; folliculitis; boils; tension headache Critical care attestation.: If time is entered above; I have spent that time in minutes in the direct care of this critically ill patient, excluding procedure time. ED Disposition Clinical Impression: Acute folliculitis, Cellulitis of head or scalp Headache, tension-type Qualifiers: Headache chronicity pattern: acute headache Intractability: not intractable Qualified Code(s): G44.209 - Tension-type headache, unspecified, not intractable Disposition: DC-01 TO HOME OR SELFCARE Is pt being admited?: No Does the pt Need Aspirin: No Condition: Stable Instructions: Tension Headache, Adult, Yzzp-it-Jxhu, Cellulitis, Adult, Oyno-eo-Rjez, Folliculitis Additional Instructions: Your symptoms are due to infection on the scalp or hair follicles of your skin scalp. Therefore take medication with food, drink plenty of fluids and follow- up with your primary care physician in 7 to 10 days for reevaluation. Return to the ED immediately if symptoms get worse. Prescriptions: cephALEXin [Keflex] 500 mg PO Q6HR #40 capsule Ibuprofen [Motrin] 800 mg PO Q8HR PRN #30 tablet PRN Reason: Pain , Severe (7-10) Referrals: LUKE HILL MD [Primary Care Provider] - 3-5 Days Time of Disposition: 00:58 Print Language: ISRAELI
[2021-01-08] MEDS ORDERED: ACETAMINOPHEN 500 MG TAB PO ONE (01:07)
[2021-01-08] MEDS ORDERED: cephALEXin 500 MG CAP PO ONE (01:07)
[2021-01-08] MEDS ORDERED: ACETAMINOPHEN 500 MG TAB ONE (01:19)
[2021-01-08] MEDS ORDERED: cephALEXin 500 MG CAP ONE (01:19)
[2021-01-08 02:00] VITALS: BP 199/127
== END 2021-01-08 01:35 | disposition home or self-care (01) ==
LOC: ED 22:28
DX: L03.811 Cellulitis of head [any part, except face] (principal); L73.9 Follicular disorder, unspecified; G44.209 Tension-type headache, unspecified, not intractable; I11.0 Hypertensive heart disease with heart failure; I50.9 Heart failure, unspecified; E11.9 Type 2 diabetes mellitus without complications; Z98.890 Other specified postprocedural states; Z79.4 Long term (current) use of insulin; Z79.899 Other long term (current) drug therapy
CPT/HCPCS: 99282

== ENCOUNTER 2021-06-13 19:26 | Emergency (ER) | payer MEDICARE | END 2021-06-13 20:30 | disposition left against medical advice (07) | LOC: ED 19:26 | DX: M79.673 Pain in unspecified foot (principal); Z53.21 Procedure and treatment not carried out due to patient leaving prior to being seen by health care provider; W22.8XXA Striking against or struck by other objects, initial encounter; Y93.89 Activity, other specified; Y92.89 Other specified places as the place of occurrence of the external cause; Y99.8 Other external cause status ==